=== PATIENT | male | born 1960 | race African-American/Black ===

== ENCOUNTER 2017-04-01 11:09 | Inpatient (IN) | payer OTHER ==
[2017-04-01 11:47] VITALS: BMI 32.5
[2017-04-01] MEDS ORDERED: ACETAMINOPHEN 325 MG TABLET (FP) PO PRN (15:22)
[2017-04-01] MEDS ORDERED: MAG HYDROX/AL HYDROX/SIMETH 30 ML UNIT-DOSE CUP PO PRN (15:22)
[2017-04-01] MEDS ORDERED: hydrOXYzine PAMOATE 50 MG CAPSULE (FP) PO PRN (15:22)
[2017-04-01] MEDS ORDERED: guaiFENesin/D-METHORPHAN HB 10 ML UNIT-DOSE CUPS PO PRN (15:22)
[2017-04-01] MEDS ORDERED: P-EPHED 60MG/TRIPROLIDI 2.5MG TABLET PO PRN (15:22)
[2017-04-01] MEDS ORDERED: NICOTINE POLACRILEX 2 MG GUM BC PRN (15:22)
[2017-04-01] MEDS ORDERED: IBUPROFEN 400 MG TABLET (FP) PO PRN (15:22)
[2017-04-01] MEDS ORDERED: MAGNESIUM HYDROX 2400MG/30ML ORAL SUSPENSION 30 ML CUP PO PRN (15:22)
[2017-04-01] MEDS ORDERED: MAGNESIUM CITRATE 300 ML BOTTLE PO PRN (15:22)
[2017-04-01] MEDS ORDERED: diphenhydrAMINE HCL 50 MG CAPSULE PO PRN (15:22)
[2017-04-01] MEDS ORDERED: LOPERAMIDE HCL 2 MG CAPSULE PO PRN (15:22)
[2017-04-01] MEDS ORDERED: chlordiazePOXIDE HCL 25 MG CAPSULE PO PRN (15:22)
[2017-04-01] MEDS ORDERED: MENTHOL/PHENOL 1 EACH UD MM PRN (15:22)
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
[2017-04-01] MEDS ORDERED: chlordiazePOXIDE HCL 25 MG CAPSULE PO ONE (16:00)
[2017-04-01] MEDS: chlordiazePOXIDE HCL 25 MG CAPSULE PO SCH ×2 (16:49→22:17)
[2017-04-01] MEDS: FERROUS SO4 325 MG TABLET (FP) PO SCH (16:49)
[2017-04-01] MEDS: PANTOPRAZOLE 40 MG TABLET (FP) PO SCH (16:49)
[2017-04-01] MEDS: DOCUSATE SODIUM 100 MG CAPSULE (FP) PO SCH ×2 (16:49→22:17)
[2017-04-01] MEDS: NICOTINE 14 MG/24 HOURS TOPICAL PATCH TD SCH (16:50)
[2017-04-01] MEDS: THIAMINE HCL 100 MG TABLET (FP) PO SCH (22:17)
[2017-04-01 22:19] LABS: URINE APPEARANCE CLEAR; URINE BILIRUBIN NEGATIVE (NEGATIVE); URINE BLOOD NEGATIVE (NEGATIVE); URINE COLOR YELLOW; URINE GLUCOSE (UA) NEGATIVE (NEGATIVE); URINE KETONE TRACE (NEGATIVE); URINE LEUK ESTERASE NEGATIVE (NEGATIVE); URINE NITRITE NEGATIVE (NEGATIVE); URINE PROTEIN NEGATIVE (NEGATIVE); URINE UROBILINOGEN NEGATIVE mg/dL (0.2-1.0)
[2017-04-02] MEDS: DOCUSATE SODIUM 100 MG CAPSULE (FP) PO SCH ×3 (05:36→22:30)
[2017-04-02] MEDS: chlordiazePOXIDE HCL 25 MG CAPSULE PO SCH ×4 (05:36→22:30)
[2017-04-02 09:53] LABS: MCH 24.7 pg (25.7-33.7); MEAN CELL VOLUME 77.2 fl (80-96); MEAN PLT VOLUME 9.4 fl (7.5-11.1); PLATELET COUNT 236 K/MM3 (134-434); RDW 17.1 % (11.9-15.9)
--- NOTE | 2017-04-02 10:07 | PN ---
[facility] CIWA - CIWA Score Nausea/Vomitin-No Nausea/No Vomiting Muscle Tremors: 4-Moderate,w/Arms Extend Anxiety: 4-Mod. Anxious/Guarded Agitation: 4-Moderately Restless Paroxysmal Sweats: 3 Orientation: 0-Oriented Tacttile Disturbances: 0-None Auditory Disturbances: 0-None Visual Disturbances: 0-None Headache: 0-None Present CIWA-Ar Total Score: 15 BHS Progress Note (SOAP) Subjective: sweats body aches interrupted sleep I need to see a sales promoter Objective: 04/02/17 10:03 Vital Signs Temperature 97.6 F 04/02/17 05:57 Pulse Rate 62 04/02/17 05:57 Respiratory Rate 20 04/02/17 05:57 Blood Pressure 133/70 04/02/17 05:57 O2 Sat by Pulse Oximetry (%) Laboratory Tests 04/01/17 04/02/17 21:57 06:00 WBC 3.0 L RBC 4.58 Hgb 11.3 L Hct 35.3 L MCV 77.2 L MCH 24.7 L MCHC 32.0 RDW 17.1 H Plt Count 236 MPV 9.4 Urine Color Yellow Urine Appearance Clear Urine pH 5.0 Ur Specific [place] >= 1.030 H Urine Protein Negative Urine Glucose (UA) Negative Urine Ketones Trace H Urine Blood Negative Urine Nitrite Negative Urine Bilirubin Negative Urine Urobilinogen Negative Ur Leukocyte Esterase Negative labs pending awake/alert ambulating no acute distress Assessment: 04/02/17 10:03 withdrawal sx Plan: continue detox increase fluids dietary customer experience consultant ordered pending labs
[2017-04-02] MEDS: FERROUS SO4 325 MG TABLET (FP) PO SCH (10:30)
[2017-04-02] MEDS: PANTOPRAZOLE 40 MG TABLET (FP) PO SCH (10:30)
[2017-04-02] MEDS: PRENATAL VITAMINS W/ FOLIC ACID TABLET (FP) PO SCH (10:30)
[2017-04-02] MEDS: NICOTINE 14 MG/24 HOURS TOPICAL PATCH TD SCH (10:31)
[2017-04-02] MEDS ORDERED: HYDROCORTISONE 1% TOPICAL CREAM 30 GM TUBE TP PRN (10:45)
--- NOTE | 2017-04-02 10:45 | EKG ---
Test Reason : Blood Pressure : / mmHG Vent. Rate : 079 BPM Atrial Rate : 079 BPM P-R Int : 150 ms QRS Dur : 126 ms QT Int : 412 ms P-R-T Axes : 053 -41 028 degrees QTc Int : 472 ms NORMAL SINUS RHYTHM LEFT AXIS DEVIATION RIGHT BUNDLE BRANCH BLOCK ABNORMAL ECG NO PREVIOUS ECGS AVAILABLE Confirmed by MIKE GIRON MD ([id number]) on 04/02/2017 10:44:53 AM Referred By: David Villatoro Confirmed By:MIKE GIRON MD
[2017-04-02 10:51] LABS: ALBUMIN 3.7 g/dl (3.4-5.0); ANION GAP 10 (8-16); BILIRUBIN,TOTAL 0.3 mg/dL (0.2-1.0); CALCIUM 8.8 mg/dL (8.5-10.1); CO2 26 mmol/L (21-32); GLUCOSE,RANDOM 133 mg/dL (74-106); SGOT/AST 8 U/L (15-37); TOT PROT 6.9 g/dl (6.4-8.2)
[2017-04-02 10:58] LABS: ALK PHOS 66 U/L (45-117); CREATININE 1.4 mg/dL (0.7-1.3); SGPT/ALT 18 U/L (12-78)
[2017-04-02] MEDS ORDERED: COLLOIDAL OATMEAL 1 BAR EACH TP PRN (15:45)
[2017-04-02] MEDS: THIAMINE HCL 100 MG TABLET (FP) PO SCH (22:30)
[2017-04-03] MEDS: DOCUSATE SODIUM 100 MG CAPSULE (FP) PO SCH ×3 (05:48→22:51)
[2017-04-03] MEDS: chlordiazePOXIDE HCL 25 MG CAPSULE PO SCH ×2 (05:50→10:29)
[2017-04-03] MEDS ORDERED: diphenhydrAMINE HCL 50 MG CAPSULE PO ONE (10:00)
[2017-04-03] MEDS: FERROUS SO4 325 MG TABLET (FP) PO SCH (10:28)
[2017-04-03] MEDS: PRENATAL VITAMINS W/ FOLIC ACID TABLET (FP) PO SCH (10:28)
[2017-04-03] MEDS: NICOTINE 14 MG/24 HOURS TOPICAL PATCH TD SCH (10:28)
[2017-04-03] MEDS: PANTOPRAZOLE 40 MG TABLET (FP) PO SCH (10:29)
--- NOTE | 2017-04-03 11:30 | PN ---
S CIWA - CIWA Score Nausea/Vomitin-No Nausea/No Vomiting Muscle Tremors: 4-Moderate,w/Arms Extend Anxiety: 3 Agitation: 4-Moderately Restless Paroxysmal Sweats: 3 Orientation: 0-Oriented Tacttile Disturbances: 0-None Auditory Disturbances: 0-None Visual Disturbances: 0-None Headache: 0-None Present CIWA-Ar Total Score: 14 BHS Progress Note (SOAP) Subjective: shakes sweats interrupted sleep agitation Objective: 04/03/2017 Vital Signs Temperature 98.2 F 04/04/17 10:05 Pulse Rate 86 04/04/17 10:05 Respiratory Rate 18 04/04/17 10:05 Blood Pressure 138/75 04/04/17 10:05 O2 Sat by Pulse Oximetry (%) Laboratory Tests 04/01/17 04/02/17 04/02/17 21:57 06:00 06:00 WBC 3.0 L RBC 4.58 Hgb 11.3 L Hct 35.3 L MCV 77.2 L MCH 24.7 L MCHC 32.0 RDW 17.1 H Plt Count 236 MPV 9.4 Sodium 141 Potassium 4.4 Chloride 105 Carbon Dioxide 26 Anion Gap 10 BUN 15 D Creatinine 1.4 H D Creat Clearance w eGFR 52.62 Random Glucose 133 H Calcium 8.8 Total Bilirubin 0.3 D AST 8 L D ALT 18 D Alkaline Phosphatase 66 Total Protein 6.9 Albumin 3.7 Urine Color Yellow Urine Appearance Clear Urine pH 5.0 Ur Specific [place] >= 1.030 H Urine Protein Negative Urine Glucose (UA) Negative Urine Ketones Trace H Urine Blood Negative Urine Nitrite Negative Urine Bilirubin Negative Urine Urobilinogen Negative Ur Leukocyte Esterase Negative RPR Titer 04/02/17 06:00 WBC RBC Hgb Hct MCV MCH MCHC RDW Plt Count MPV Sodium Potassium Chloride Carbon Dioxide Anion Gap BUN Creatinine Creat Clearance w eGFR Random Glucose Calcium Total Bilirubin AST ALT Alkaline Phosphatase Total Protein Albumin Urine Color Urine Appearance Urine pH Ur Specific [place] Urine Protein Urine Glucose (UA) Urine Ketones Urine Blood Urine Nitrite Urine Bilirubin Urine Urobilinogen Ur Leukocyte Esterase RPR Titer Nonreactive AAOx3 no acute distress ambulating Assessment: 04/03/17 11:49 withdrawal sx Plan: continue detox increase fluids
--- NOTE | 2017-04-03 11:51 | PN ---
BHS Progress Note (SOAP) Subjective: nausea, sweats, interrupted sleep, anxiety, tremors Objective: 04/03/17 11:50 Vital Signs - 24 hr 04/02/17 04/02/17 04/02/17 14:44 17:43 22:01 Temperature 98.1 F 97.9 F 97.7 F Pulse Rate 85 74 88 Respiratory 18 19 16 Rate Blood Pressure 120/69 103/53 120/72 04/03/17 04/03/17 04/03/17 00:30 03:30 06:47 Temperature 96.3 F L Pulse Rate 73 Respiratory 18 18 18 Rate Blood Pressure 102/73 04/03/17 10:13 Temperature 97.7 F Pulse Rate 77 Respiratory 18 Rate Blood Pressure 120/80 Laboratory Tests 04/01/17 04/02/17 04/02/17 21:57 06:00 06:00 WBC 3.0 L RBC 4.58 Hgb 11.3 L Hct 35.3 L MCV 77.2 L MCH 24.7 L MCHC 32.0 RDW 17.1 H Plt Count 236 MPV 9.4 Sodium 141 Potassium 4.4 Chloride 105 Carbon Dioxide 26 Anion Gap 10 BUN 15 D Creatinine 1.4 H D Creat Clearance w eGFR 52.62 Random Glucose 133 H Calcium 8.8 Total Bilirubin 0.3 D AST 8 L D ALT 18 D Alkaline Phosphatase 66 Total Protein 6.9 Albumin 3.7 Urine Color Yellow Urine Appearance Clear Urine pH 5.0 Ur Specific [place] >= 1.030 H Urine Protein Negative Urine Glucose (UA) Negative Urine Ketones Trace H Urine Blood Negative Urine Nitrite Negative Urine Bilirubin Negative Urine Urobilinogen Negative Ur Leukocyte Esterase Negative RPR Titer 04/02/17 06:00 WBC RBC Hgb Hct MCV MCH MCHC RDW Plt Count MPV Sodium Potassium Chloride Carbon Dioxide Anion Gap BUN Creatinine Creat Clearance w eGFR Random Glucose Calcium Total Bilirubin AST ALT Alkaline Phosphatase Total Protein Albumin Urine Color Urine Appearance Urine pH Ur Specific [place] Urine Protein Urine Glucose (UA) Urine Ketones Urine Blood Urine Nitrite Urine Bilirubin Urine Urobilinogen Ur Leukocyte Esterase RPR Titer Nonreactive Assessment: 04/03/17 11:50 withdrawwal sx, dehydration,hyperglycemia Plan: cont detox, fluids, diabetic cdiet
[2017-04-03] MEDS: chlordiazePOXIDE 5 MG CAPSULE PO SCH ×2 (17:44→22:51)
[2017-04-03] MEDS: THIAMINE HCL 100 MG TABLET (FP) PO SCH (22:51)
[2017-04-04] MEDS: DOCUSATE SODIUM 100 MG CAPSULE (FP) PO SCH (05:16)
[2017-04-04] MEDS: chlordiazePOXIDE 5 MG CAPSULE PO SCH (05:17)
--- NOTE | 2017-04-04 08:42 | DS ---
[facility] Detox Discharge Summary Admission Date: 04/01/17 Discharge Date: 04/04/17 - History Present History: Alcohol Dependence, Cocaine Dependence Pertinent Past History: GERD, s/p gastric bypass, eczema, allergic reaction arm - Physical Exam Results Vital Signs: Vital Signs Temperature 96.1 F L 04/04/17 06:51 Pulse Rate 67 04/04/17 06:51 Respiratory Rate 18 04/04/17 06:51 Blood Pressure 135/90 04/04/17 06:51 O2 Sat by Pulse Oximetry (%) Laboratory Tests 04/01/17 04/02/17 04/02/17 21:57 06:00 06:00 WBC 3.0 L RBC 4.58 Hgb 11.3 L Hct 35.3 L MCV 77.2 L MCH 24.7 L MCHC 32.0 RDW 17.1 H Plt Count 236 MPV 9.4 Sodium 141 Potassium 4.4 Chloride 105 Carbon Dioxide 26 Anion Gap 10 BUN 15 D Creatinine 1.4 H D Creat Clearance w eGFR 52.62 Random Glucose 133 H Calcium 8.8 Total Bilirubin 0.3 D AST 8 L D ALT 18 D Alkaline Phosphatase 66 Total Protein 6.9 Albumin 3.7 Urine Color Yellow Urine Appearance Clear Urine pH 5.0 Ur Specific [place] >= 1.030 H Urine Protein Negative Urine Glucose (UA) Negative Urine Ketones Trace H Urine Blood Negative Urine Nitrite Negative Urine Bilirubin Negative Urine Urobilinogen Negative Ur Leukocyte Esterase Negative RPR Titer 04/02/17 06:00 WBC RBC Hgb Hct MCV MCH MCHC RDW Plt Count MPV Sodium Potassium Chloride Carbon Dioxide Anion Gap BUN Creatinine Creat Clearance w eGFR Random Glucose Calcium Total Bilirubin AST ALT Alkaline Phosphatase Total Protein Albumin Urine Color Urine Appearance Urine pH Ur Specific [place] Urine Protein Urine Glucose (UA) Urine Ketones Urine Blood Urine Nitrite Urine Bilirubin Urine Urobilinogen Ur Leukocyte Esterase RPR Titer Nonreactive Pertinent Admission Physical Exam Findings: withdrawal sx, discoid lesion forearm - Treatment Hospital Course: Detox Protocol Followed, Detoxed Safely, Responded well, Discharged Condition Good, Rehab Referral Accepted Patient has Accepted a Rehab Referral to: Yes - Medication Discharge Medications: Ambulatory Orders Ferrous Sulfate [Feosol] 325 mg PO DAILY #30 ud 01/13/15 Docusate Sodium [Colace -] 100 mg PO TID 04/01/17 Omeprazole 20 mg PO DAILY 09/05/17 - Diagnosis (1) CA of prostate Current Visit: No Status: Chronic (2) Cocaine dependence Current Visit: Yes Status: Chronic Qualifiers: Substance use status: uncomplicated Qualified Code(s): F14.20 - Cocaine dependence, uncomplicated (3) GERD (gastroesophageal reflux disease) Current Visit: Yes Status: Chronic (4) Obesity Current Visit: Yes Status: Chronic (5) H/O gastric bypass Current Visit: Yes Status: Inactive (6) Complications of gastric bypass surgery Current Visit: Yes Status: Chronic (7) Nicotine dependence Current Visit: Yes Status: Chronic Qualifiers: Nicotine product type: cigarettes (8) Alcohol dependence with uncomplicated withdrawal Current Visit: Yes Status: Chronic (9) Microcytic anemia Current Visit: Yes Status: Acute (10) Acute kidney failure Current Visit: Yes Status: Acute - AMA Did Patient Leave Against Medical Advice: No
[2017-04-04] MEDS: PRENATAL VITAMINS W/ FOLIC ACID TABLET (FP) PO SCH (09:57)
[2017-04-04] MEDS: PANTOPRAZOLE 40 MG TABLET (FP) PO SCH (09:57)
[2017-04-04] MEDS: FERROUS SO4 325 MG TABLET (FP) PO SCH (09:57)
[2017-04-04 10:06] VITALS: BP 138/75; PULSE 86; TEMP 98.2
[2017-04-04] MEDS ORDERED: HYDROCORTISONE 0.5% TOPICAL CREAM 30 GM TUBE TP ONE (10:15)
[2017-04-04] MEDS ORDERED: chlordiazePOXIDE HCL 10 MG CAPSULE PO SCH (17:00)
== END 2017-04-04 10:35 | disposition home or self-care (01) | DRG 897 ==
LOC: YASAS 11:09 → Y6N 15:29
PROVIDERS: ADMIT Internal Medicine Addiction Medicine; ATTEND Internal Medicine Addiction Medicine
PROC: HZ2ZZZZ Detoxification Services for Substance Abuse Treatment (ICD-10-PCS; principal; 2017-04-01)
DX: F10.230 Alcohol dependence with withdrawal, uncomplicated (principal); F14.20 Cocaine dependence, uncomplicated; N17.9 Acute kidney failure, unspecified; F17.210 Nicotine dependence, cigarettes, uncomplicated; I10 Essential (primary) hypertension; K21.9 Gastro-esophageal reflux disease without esophagitis; Z85.46 Personal history of malignant neoplasm of prostate; E66.9 Obesity, unspecified; Z68.32 Body mass index [BMI] 32.0-32.9, adult; Z98.84 Bariatric surgery status; D50.9 Iron deficiency anemia, unspecified; E86.0 Dehydration; R73.9 Hyperglycemia, unspecified; Z90.79 Acquired absence of other genital organ(s)
CPT/HCPCS: 36415; 71020-TC; 80053; 81003; 85027; 86593; 93005; 93010

== ENCOUNTER 2017-11-21 11:32 | Inpatient (IN) | payer OTHER ==
[2017-11-21 12:28] VITALS: BMI 34.4
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
[2017-11-21] MEDS ORDERED: IBUPROFEN 400 MG TABLET (FP) PO PRN (14:53)
[2017-11-21] MEDS ORDERED: hydrOXYzine PAMOATE 50 MG CAPSULE (FP) PO PRN (14:53)
[2017-11-21] MEDS ORDERED: ACETAMINOPHEN 325 MG TABLET (FP) PO PRN (14:53)
[2017-11-21] MEDS ORDERED: P-EPHED 60MG/TRIPROLIDI 2.5MG TABLET PO PRN (14:53)
[2017-11-21] MEDS ORDERED: MAG HYDROX/AL HYDROX/SIMETH 30 ML UNIT-DOSE CUP PO PRN (14:53)
[2017-11-21] MEDS ORDERED: chlordiazePOXIDE HCL 25 MG CAPSULE PO PRN (14:53)
[2017-11-21] MEDS ORDERED: MENTHOL/PHENOL 1 EACH UD MM PRN (14:53)
[2017-11-21] MEDS ORDERED: guaiFENesin/D-METHORPHAN HB 10 ML UNIT-DOSE CUPS PO PRN (14:53)
[2017-11-21] MEDS ORDERED: LOPERAMIDE HCL 2 MG CAPSULE PO PRN (14:53)
[2017-11-21] MEDS ORDERED: chlordiazePOXIDE HCL 25 MG CAPSULE PO ONE (15:20)
[2017-11-21] MEDS: chlordiazePOXIDE HCL 25 MG CAPSULE PO SCH ×2 (18:27→22:27)
[2017-11-21] MEDS ORDERED: MELATONIN 5 MG TABLETS PO PRN (22:00)
[2017-11-21] MEDS: DOCUSATE SODIUM 100 MG CAPSULE (FP) PO SCH (22:27)
[2017-11-21] MEDS: THIAMINE HCL 100 MG TABLET (FP) PO SCH (22:27)
[2017-11-22] MEDS: chlordiazePOXIDE HCL 25 MG CAPSULE PO SCH ×4 (05:30→22:30)
[2017-11-22] MEDS: DOCUSATE SODIUM 100 MG CAPSULE (FP) PO SCH ×3 (05:31→22:30)
[2017-11-22 10:21] LABS: BASO % 1.3 % (0-2.0); EOS % 3.9 % (0-4.5); HEMATOCRIT 36.3 % (35.4-49); HEMOGLOBIN 11.9 GM/dL (11.7-16.9); LYMPH % 50.7 % (8-40); MCH 25.2 pg (25.7-33.7); MCHC 32.7 g/dl (32.0-35.9); MEAN CELL VOLUME 77.1 fl (80-96); MEAN PLT VOLUME 9.5 fl (7.5-11.1); MONO % 13.1 % (3.8-10.2); PLATELET COUNT 189 K/MM3 (134-434); RBC 4.71 M/mm3 (4.00-5.60); RDW 15.9 % (11.9-15.9); WHITE BLOOD COUNT 3.3 K/mm3 (4.0-10.0)
[2017-11-22 10:30] LABS: CHLORIDE 108 mmol/L (98-107); POTASSIUM 4.5 mmol/L (3.5-5.1); SODIUM 140 mmol/L (136-145)
[2017-11-22] MEDS: PRENATAL VITAMINS W/ FOLIC ACID TABLET (FP) PO SCH (10:32)
[2017-11-22] MEDS: FERROUS SO4 325 MG TABLET (FP) PO SCH (10:32)
[2017-11-22 10:49] LABS: ALBUMIN 3.7 g/dl (3.4-5.0); ALK PHOS 89 U/L (45-117); ANION GAP 3 (8-16); BILIRUBIN,TOTAL 0.3 mg/dL (0.2-1.0); BLOOD UREA NITROGEN 19 mg/dL (7-18); CALCIUM 8.1 mg/dL (8.5-10.1); CO2 29 mmol/L (21-32); CREATININE 1.2 mg/dL (0.7-1.3); GLUCOSE,RANDOM 93 mg/dL (74-106); SGOT/AST 13 U/L (15-37); SGPT/ALT 22 U/L (12-78); TOT PROT 7.5 g/dl (6.4-8.2)
[2017-11-22 10:55] LABS: URINE APPEARANCE TURBID; URINE BILIRUBIN NEGATIVE (<2.0 mg/dL); URINE BLOOD NEGATIVE (NEGATIVE); URINE COLOR AMBER; URINE GLUCOSE (UA) NEGATIVE (NEGATIVE); URINE KETONE NEGATIVE (NEGATIVE); URINE LEUK ESTERASE NEGATIVE (NEGATIVE); URINE NITRITE NEGATIVE (NEGATIVE); URINE PROTEIN NEGATIVE (NEGATIVE)
[2017-11-22] MEDS: SENNOSIDES 8.6MG TABLET (FP) PO SCH ×2 (14:31→22:30)
--- NOTE | 2017-11-22 15:31 | PN ---
S CIWA - CIWA Score Nausea/Vomitin-No Nausea/No Vomiting Muscle Tremors: None Anxiety: 5 Agitation: 4-Moderately Restless Paroxysmal Sweats: 3 Orientation: 0-Oriented Tacttile Disturbances: 3-Moderate Itch/Numb/Burn Auditory Disturbances: 0-None Visual Disturbances: 2-Mild Sensitivity Headache: 0-None Present CIWA-Ar Total Score: 17 BHS Progress Note (SOAP) Subjective: Tremors, Anxious, Sweating, Constipation. Objective: PATIENT A & O X 3, OBSERVED AMBULATING ON UNIT. NO ACUTE DISTRESS. 11/22/17 15:29 Vital Signs Temperature 98.6 F 11/22/17 14:37 Pulse Rate 79 11/22/17 14:37 Respiratory Rate 18 11/22/17 14:37 Blood Pressure 122/81 11/22/17 14:37 O2 Sat by Pulse Oximetry (%) Laboratory Tests 11/21/17 11/21/17 11/22/17 14:00 23:31 07:40 WBC RBC Hgb Hct MCV MCH MCHC RDW Plt Count MPV Neutrophils % Lymphocytes % Monocytes % Eosinophils % Basophils % Sodium 140 Potassium 4.5 Chloride 108 H Carbon Dioxide 29 Anion Gap 3 L BUN 19 H D Creatinine 1.2 Creat Clearance w eGFR > 60 Random Glucose 93 D Calcium 8.1 L Total Bilirubin 0.3 AST 13 L D ALT 22 D Alkaline Phosphatase 89 D Total Protein 7.5 Albumin 3.7 Urine Color Katina Urine Appearance Turbid Urine pH 5.0 Ur Specific [place] 1.029 Urine Protein Negative Urine Glucose (UA) Negative Urine Ketones Negative Urine Blood Negative Urine Nitrite Negative Urine Bilirubin Negative Urine Urobilinogen 2.0 Ur Leukocyte Esterase Negative RPR Titer HIV 1&2 Antibody Screen Negative HIV P24 Antigen Negative 11/22/17 11/22/17 07:40 08:30 WBC 3.3 L RBC 4.71 Hgb 11.9 Hct 36.3 MCV 77.1 L MCH 25.2 L MCHC 32.7 RDW 15.9 Plt Count 189 MPV 9.5 Neutrophils % 31.0 L Lymphocytes % 50.7 H Monocytes % 13.1 H Eosinophils % 3.9 Basophils % 1.3 Sodium Potassium Chloride Carbon Dioxide Anion Gap BUN Creatinine Creat Clearance w eGFR Random Glucose Calcium Total Bilirubin AST ALT Alkaline Phosphatase Total Protein Albumin Urine Color Urine Appearance Urine pH Ur Specific [place] Urine Protein Urine Glucose (UA) Urine Ketones Urine Blood Urine Nitrite Urine Bilirubin Urine Urobilinogen Ur Leukocyte Esterase RPR Titer Nonreactive HIV 1&2 Antibody Screen HIV P24 Antigen LABS NOTED. Assessment: 11/22/17 15:29 WITHDRAWAL SYMPTOMS. Plan: CONTINUE DETOX. INCREASE DAILY PO FLUID INTAKE. SENNA PO BID FOR CONSTIPATION (COLACE ALREADY ORDERED).
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
[2017-11-22] MEDS: MAGNESIUM CITRATE 300 ML BOTTLE PO PRN (19:21)
[2017-11-22] MEDS: CLOTRIMAZOLE 1% CREAM 15 GM TUBE TP SCH ×2 (22:29→22:30)
[2017-11-22] MEDS: THIAMINE HCL 100 MG TABLET (FP) PO SCH (22:30)
[2017-11-22] MEDS: MAGNESIUM HYDROX 2400MG/30ML ORAL SUSPENSION 30 ML CUP PO PRN (22:32)
[2017-11-23] MEDS: chlordiazePOXIDE HCL 25 MG CAPSULE PO SCH ×2 (05:56→10:46)
[2017-11-23] MEDS: DOCUSATE SODIUM 100 MG CAPSULE (FP) PO SCH ×3 (05:57→22:38)
[2017-11-23] MEDS ORDERED: diphenhydrAMINE HCL 25 MG CAPSULE (FP) PO ONE (10:06)
[2017-11-23] MEDS: FERROUS SO4 325 MG TABLET (FP) PO SCH (10:46)
[2017-11-23] MEDS: SENNOSIDES 8.6MG TABLET (FP) PO SCH ×2 (10:46→22:38)
[2017-11-23] MEDS: PRENATAL VITAMINS W/ FOLIC ACID TABLET (FP) PO SCH (10:46)
[2017-11-23] MEDS: CLOTRIMAZOLE 1% CREAM 15 GM TUBE TP SCH ×2 (10:47→22:38)
[2017-11-23] MEDS: chlordiazePOXIDE 5 MG CAPSULE PO SCH ×2 (17:35→22:37)
[2017-11-23] MEDS: MAGNESIUM HYDROX 2400MG/30ML ORAL SUSPENSION 30 ML CUP PO PRN (18:01)
--- NOTE | 2017-11-23 20:16 | PN ---
[facility] CIWA - CIWA Score Nausea/Vomitin-No Nausea/No Vomiting Muscle Tremors: 3 Anxiety: 4-Mod. Anxious/Guarded Agitation: 4-Moderately Restless Paroxysmal Sweats: 3 Orientation: 0-Oriented Tacttile Disturbances: 0-None Auditory Disturbances: 1-Very Mild Visual Disturbances: 0-None Headache: 0-None Present CIWA-Ar Total Score: 15 BHS Progress Note (SOAP) Subjective: Tremors, Anxious, Sweating, Constipation (patient denies abdominal discomfort). Patient reports history of constipation and gastric bypass and intestinal surgery. Objective: PATIENT A & O X 3, OBSERVED AMBULATING ON UNIT. NO ACUTE DISTRESS. 11/23/17 20:17 Vital Signs Temperature 97.0 F L 11/23/17 17:55 Pulse Rate 80 11/23/17 17:55 Respiratory Rate 20 11/23/17 17:55 Blood Pressure 120/86 11/23/17 17:55 O2 Sat by Pulse Oximetry (%) Laboratory Tests 11/21/17 11/21/17 11/22/17 14:00 23:31 07:40 WBC RBC Hgb Hct MCV MCH MCHC RDW Plt Count MPV Neutrophils % Lymphocytes % Monocytes % Eosinophils % Basophils % Sodium 140 Potassium 4.5 Chloride 108 H Carbon Dioxide 29 Anion Gap 3 L BUN 19 H D Creatinine 1.2 Creat Clearance w eGFR > 60 Random Glucose 93 D Calcium 8.1 L Total Bilirubin 0.3 AST 13 L D ALT 22 D Alkaline Phosphatase 89 D Total Protein 7.5 Albumin 3.7 Urine Color Katina Urine Appearance Turbid Urine pH 5.0 Ur Specific [place] 1.029 Urine Protein Negative Urine Glucose (UA) Negative Urine Ketones Negative Urine Blood Negative Urine Nitrite Negative Urine Bilirubin Negative Urine Urobilinogen 2.0 Ur Leukocyte Esterase Negative RPR Titer HIV 1&2 Antibody Screen Negative HIV P24 Antigen Negative 11/22/17 11/22/17 07:40 08:30 WBC 3.3 L RBC 4.71 Hgb 11.9 Hct 36.3 MCV 77.1 L MCH 25.2 L MCHC 32.7 RDW 15.9 Plt Count 189 MPV 9.5 Neutrophils % 31.0 L Lymphocytes % 50.7 H Monocytes % 13.1 H Eosinophils % 3.9 Basophils % 1.3 Sodium Potassium Chloride Carbon Dioxide Anion Gap BUN Creatinine Creat Clearance w eGFR Random Glucose Calcium Total Bilirubin AST ALT Alkaline Phosphatase Total Protein Albumin Urine Color Urine Appearance Urine pH Ur Specific [place] Urine Protein Urine Glucose (UA) Urine Ketones Urine Blood Urine Nitrite Urine Bilirubin Urine Urobilinogen Ur Leukocyte Esterase RPR Titer Nonreactive HIV 1&2 Antibody Screen HIV P24 Antigen LABS NOTED. Assessment: 11/23/17 20:19 WITHDRAWAL SYMPTOMS. Plan: CONTINUE DETOX. INCREASE DAILY PO FLUID INTAKE. CONTINUE COLACE, SENNA FOR CONSTIPATION.
[2017-11-23] MEDS: THIAMINE HCL 100 MG TABLET (FP) PO SCH (22:38)
[2017-11-24] MEDS: chlordiazePOXIDE 5 MG CAPSULE PO SCH ×2 (05:51→10:44)
[2017-11-24] MEDS: DOCUSATE SODIUM 100 MG CAPSULE (FP) PO SCH ×3 (05:51→22:36)
[2017-11-24] MEDS: MAGNESIUM CITRATE 300 ML BOTTLE PO PRN (05:54)
[2017-11-24] MEDS: SENNOSIDES 8.6MG TABLET (FP) PO SCH ×2 (10:44→22:36)
[2017-11-24] MEDS: FERROUS SO4 325 MG TABLET (FP) PO SCH (10:44)
[2017-11-24] MEDS: CLOTRIMAZOLE 1% CREAM 15 GM TUBE TP SCH ×2 (10:44→22:35)
[2017-11-24] MEDS: PRENATAL VITAMINS W/ FOLIC ACID TABLET (FP) PO SCH (10:45)
--- NOTE | 2017-11-24 11:53 | PN ---
BHS Progress Note (SOAP) Subjective: sleep disturbance sweats Objective: 11/24/17 11:52 A & O x 3 Vital Signs Temperature 98.1 F 11/24/17 09:16 Pulse Rate 80 11/24/17 09:16 Respiratory Rate 18 11/24/17 09:16 Blood Pressure 130/89 11/24/17 09:16 O2 Sat by Pulse Oximetry (%) Assessment: 11/24/17 11:52 withdrawal sx Plan: continue detox
--- NOTE | 2017-11-24 12:30 | EKG ---
Test Reason : Blood Pressure : / mmHG Vent. Rate : 073 BPM Atrial Rate : 073 BPM P-R Int : 160 ms QRS Dur : 128 ms QT Int : 430 ms P-R-T Axes : 063 -34 021 degrees QTc Int : 473 ms NORMAL SINUS RHYTHM LEFT AXIS DEVIATION RIGHT BUNDLE BRANCH BLOCK ABNORMAL ECG WHEN COMPARED WITH ECG OF 01-APR-2017 15:54, NO SIGNIFICANT CHANGE WAS FOUND Confirmed by DELMY BAIG MD ([id number]) on 11/24/2017 12:30:04 PM Referred By: Confirmed By:DELMY BAIG MD
[2017-11-24] MEDS: chlordiazePOXIDE HCL 10 MG CAPSULE PO SCH ×2 (17:55→22:36)
[2017-11-24] MEDS: MAGNESIUM HYDROX 2400MG/30ML ORAL SUSPENSION 30 ML CUP PO PRN (17:57)
[2017-11-24] MEDS ORDERED: LACTULOSE 20 GM/30 ML UDC (FOR ORAL USE ONLY) PO PRN (18:01)
--- NOTE | 2017-11-24 18:04 | PN ---
S Progress Note Note: Patient with constipation and no relief with milk of magnesia. Vital Signs Temperature 96.7 F L 11/24/17 18:00 Pulse Rate 80 11/24/17 18:00 Respiratory Rate 18 11/24/17 18:00 Blood Pressure 129/88 11/24/17 18:00 O2 Sat by Pulse Oximetry (%) - constipation Plan: Lactulose QD Increase fluids Continue to monitor
[2017-11-24] MEDS: THIAMINE HCL 100 MG TABLET (FP) PO SCH (22:35)
[2017-11-25] MEDS: chlordiazePOXIDE HCL 10 MG CAPSULE PO SCH ×2 (05:30→10:38)
[2017-11-25] MEDS: DOCUSATE SODIUM 100 MG CAPSULE (FP) PO SCH ×3 (05:31→22:18)
[2017-11-25] MEDS: CLOTRIMAZOLE 1% CREAM 15 GM TUBE TP SCH ×2 (10:37→22:19)
[2017-11-25] MEDS: SENNOSIDES 8.6MG TABLET (FP) PO SCH ×2 (10:38→22:18)
[2017-11-25] MEDS: FERROUS SO4 325 MG TABLET (FP) PO SCH (10:38)
[2017-11-25] MEDS: PRENATAL VITAMINS W/ FOLIC ACID TABLET (FP) PO SCH (10:38)
--- NOTE | 2017-11-25 13:02 | PN ---
BHS Progress Note (SOAP) Subjective: Anxious, Sweating, Constipation (patient reports that he did have a bowel movement this AM). Objective: PATIENT A & O X 3, OBSERVED AMBULATING ON UNIT. NO ACUTE DISTRESS. 11/25/17 12:59 Vital Signs Temperature 97.1 F L 11/25/17 09:32 Pulse Rate 88 11/25/17 09:32 Respiratory Rate 20 11/25/17 09:32 Blood Pressure 134/76 11/25/17 09:32 O2 Sat by Pulse Oximetry (%) Laboratory Tests 11/21/17 11/21/17 11/22/17 14:00 23:31 07:40 WBC RBC Hgb Hct MCV MCH MCHC RDW Plt Count MPV Neutrophils % Lymphocytes % Monocytes % Eosinophils % Basophils % Sodium 140 Potassium 4.5 Chloride 108 H Carbon Dioxide 29 Anion Gap 3 L BUN 19 H D Creatinine 1.2 Creat Clearance w eGFR > 60 Random Glucose 93 D Calcium 8.1 L Total Bilirubin 0.3 AST 13 L D ALT 22 D Alkaline Phosphatase 89 D Total Protein 7.5 Albumin 3.7 Urine Color Katina Urine Appearance Turbid Urine pH 5.0 Ur Specific [place] 1.029 Urine Protein Negative Urine Glucose (UA) Negative Urine Ketones Negative Urine Blood Negative Urine Nitrite Negative Urine Bilirubin Negative Urine Urobilinogen 2.0 Ur Leukocyte Esterase Negative RPR Titer HIV 1&2 Antibody Screen Negative HIV P24 Antigen Negative 11/22/17 11/22/17 07:40 08:30 WBC 3.3 L RBC 4.71 Hgb 11.9 Hct 36.3 MCV 77.1 L MCH 25.2 L MCHC 32.7 RDW 15.9 Plt Count 189 MPV 9.5 Neutrophils % 31.0 L Lymphocytes % 50.7 H Monocytes % 13.1 H Eosinophils % 3.9 Basophils % 1.3 Sodium Potassium Chloride Carbon Dioxide Anion Gap BUN Creatinine Creat Clearance w eGFR Random Glucose Calcium Total Bilirubin AST ALT Alkaline Phosphatase Total Protein Albumin Urine Color Urine Appearance Urine pH Ur Specific [place] Urine Protein Urine Glucose (UA) Urine Ketones Urine Blood Urine Nitrite Urine Bilirubin Urine Urobilinogen Ur Leukocyte Esterase RPR Titer Nonreactive HIV 1&2 Antibody Screen HIV P24 Antigen LABS NOTED. Assessment: 11/25/17 12:59 WITHDRAWAL SYMPTOMS. Plan: CONTINUE DETOX. INCREASE DAILY PO FLUID INTAKE. CONTINUE DAILY COLACE, SENNA. PATIENT SCHEDULED FOR D/C TOMORROW.
[2017-11-25] MEDS: MAGNESIUM HYDROX 2400MG/30ML ORAL SUSPENSION 30 ML CUP PO PRN (14:13)
[2017-11-25] MEDS: THIAMINE HCL 100 MG TABLET (FP) PO SCH (22:18)
[2017-11-26] MEDS: DOCUSATE SODIUM 100 MG CAPSULE (FP) PO SCH (05:39)
[2017-11-26 06:20] VITALS: BP 112/71; PULSE 66; TEMP 97.2
--- NOTE | 2017-11-26 13:00 | PN ---
BHS Progress Note (SOAP) Subjective: Patient denies current Detox symptoms and reports that he feels well overall. Objective: PATIENT A & O X 3, OBSERVED AMBULATING ON UNIT. NO ACUTE DISTRESS. 11/26/17 12:57 Vital Signs Temperature 97.2 F L 11/26/17 06:20 Pulse Rate 66 11/26/17 06:20 Respiratory Rate 18 11/26/17 06:20 Blood Pressure 112/71 11/26/17 06:20 O2 Sat by Pulse Oximetry (%) Laboratory Tests 11/21/17 11/21/17 11/22/17 14:00 23:31 07:40 WBC RBC Hgb Hct MCV MCH MCHC RDW Plt Count MPV Neutrophils % Lymphocytes % Monocytes % Eosinophils % Basophils % Sodium 140 Potassium 4.5 Chloride 108 H Carbon Dioxide 29 Anion Gap 3 L BUN 19 H D Creatinine 1.2 Creat Clearance w eGFR > 60 Random Glucose 93 D Calcium 8.1 L Total Bilirubin 0.3 AST 13 L D ALT 22 D Alkaline Phosphatase 89 D Total Protein 7.5 Albumin 3.7 Urine Color Katina Urine Appearance Turbid Urine pH 5.0 Ur Specific [place] 1.029 Urine Protein Negative Urine Glucose (UA) Negative Urine Ketones Negative Urine Blood Negative Urine Nitrite Negative Urine Bilirubin Negative Urine Urobilinogen 2.0 Ur Leukocyte Esterase Negative RPR Titer HIV 1&2 Antibody Screen Negative HIV P24 Antigen Negative 11/22/17 11/22/17 07:40 08:30 WBC 3.3 L RBC 4.71 Hgb 11.9 Hct 36.3 MCV 77.1 L MCH 25.2 L MCHC 32.7 RDW 15.9 Plt Count 189 MPV 9.5 Neutrophils % 31.0 L Lymphocytes % 50.7 H Monocytes % 13.1 H Eosinophils % 3.9 Basophils % 1.3 Sodium Potassium Chloride Carbon Dioxide Anion Gap BUN Creatinine Creat Clearance w eGFR Random Glucose Calcium Total Bilirubin AST ALT Alkaline Phosphatase Total Protein Albumin Urine Color Urine Appearance Urine pH Ur Specific [place] Urine Protein Urine Glucose (UA) Urine Ketones Urine Blood Urine Nitrite Urine Bilirubin Urine Urobilinogen Ur Leukocyte Esterase RPR Titer Nonreactive HIV 1&2 Antibody Screen HIV P24 Antigen LABS NOTED. Assessment: 11/26/17 12:58 COMPLETION OF DETOX REGIMEN. Plan: PATIENT SCHEDULED FOR DISCHARGE FROM DETOX UNIT TODAY.
--- NOTE | 2017-11-26 13:06 | DS ---
[facility] Detox Discharge Summary Admission Date: 11/21/17 Discharge Date: 11/26/17 - History Present History: Alcohol Dependence, Cocaine Dependence Additional Comments: PATIENT GOING TO LOCAL OUTPATIENT SUPPORT GROUP PROGRAM (PATIENT UNABLE TO RECALL NAME AT THIS TIME) FOR AFTERCARE. PATIENT WAS DISCHARGED FROM DETOX UNIT IN STABLE MEDICAL CONDITION. Pertinent Past History: History of Gastric Bypass, History of Anemia due to Gastric Bypass, GERD, Constipation, Tinea Versicolor, History of Prostate Cancer HTN, Nicotine Dependence. - Physical Exam Results Vital Signs: Vital Signs Temperature 97.2 F L 11/26/17 06:20 Pulse Rate 66 11/26/17 06:20 Respiratory Rate 18 11/26/17 06:20 Blood Pressure 112/71 11/26/17 06:20 O2 Sat by Pulse Oximetry (%) Pertinent Admission Physical Exam Findings: WITHDRAWAL SYMPTOMS. Laboratory Tests 11/21/17 11/21/17 11/22/17 14:00 23:31 07:40 WBC RBC Hgb Hct MCV MCH MCHC RDW Plt Count MPV Neutrophils % Lymphocytes % Monocytes % Eosinophils % Basophils % Sodium 140 Potassium 4.5 Chloride 108 H Carbon Dioxide 29 Anion Gap 3 L BUN 19 H D Creatinine 1.2 Creat Clearance w eGFR > 60 Random Glucose 93 D Calcium 8.1 L Total Bilirubin 0.3 AST 13 L D ALT 22 D Alkaline Phosphatase 89 D Total Protein 7.5 Albumin 3.7 Urine Color Katina Urine Appearance Turbid Urine pH 5.0 Ur Specific [place] 1.029 Urine Protein Negative Urine Glucose (UA) Negative Urine Ketones Negative Urine Blood Negative Urine Nitrite Negative Urine Bilirubin Negative Urine Urobilinogen 2.0 Ur Leukocyte Esterase Negative RPR Titer HIV 1&2 Antibody Screen Negative HIV P24 Antigen Negative 11/22/17 11/22/17 07:40 08:30 WBC 3.3 L RBC 4.71 Hgb 11.9 Hct 36.3 MCV 77.1 L MCH 25.2 L MCHC 32.7 RDW 15.9 Plt Count 189 MPV 9.5 Neutrophils % 31.0 L Lymphocytes % 50.7 H Monocytes % 13.1 H Eosinophils % 3.9 Basophils % 1.3 Sodium Potassium Chloride Carbon Dioxide Anion Gap BUN Creatinine Creat Clearance w eGFR Random Glucose Calcium Total Bilirubin AST ALT Alkaline Phosphatase Total Protein Albumin Urine Color Urine Appearance Urine pH Ur Specific [place] Urine Protein Urine Glucose (UA) Urine Ketones Urine Blood Urine Nitrite Urine Bilirubin Urine Urobilinogen Ur Leukocyte Esterase RPR Titer Nonreactive HIV 1&2 Antibody Screen HIV P24 Antigen LABS NOTED. - Treatment Hospital Course: Detox Protocol Followed, Detoxed Safely, Responded well, Discharged Condition Good Patient has Accepted a Rehab Referral to: PATIENT GOING TO LOCAL OUTPATIENT SUPPORT GROUP PROGRAM FOR AFTERCARE. - Medication Discharge Medications: Ambulatory Orders Ferrous Sulfate [Feosol] 325 mg PO DAILY #30 ud 01/13/15 Docusate Sodium [Colace -] 100 mg PO TID 04/01/17 Omeprazole 20 mg PO DAILY 04/01/17 - Diagnosis (1) History of gastric bypass Status: Chronic (2) Tinea versicolor Status: Acute (3) Alcohol dependence with uncomplicated withdrawal Status: Acute (4) CA of prostate Status: Chronic (5) Cocaine dependence Status: Acute Qualifiers: Substance use status: uncomplicated Qualified Code(s): F14.20 - Cocaine dependence, uncomplicated (6) GERD (gastroesophageal reflux disease) Status: Chronic Qualifiers: Esophagitis presence: esophagitis presence not specified Qualified Code(s) : K21.9 - Gastro-esophageal reflux disease without esophagitis (7) Nicotine dependence Status: Acute Qualifiers: Nicotine product type: cigarettes Substance use status: uncomplicated Qualified Code(s): F17.210 - Nicotine dependence, cigarettes, uncomplicated (8) Hypertension Status: Chronic Qualifiers: Hypertension type: unspecified Qualified Code(s): I10 - Essential (primary ) hypertension - AMA Did Patient Leave Against Medical Advice: No
== END 2017-11-26 08:25 | disposition home or self-care (01) | DRG 897 ==
LOC: YASAS 11:32 → Y3N 14:47
PROVIDERS: ADMIT Internal Medicine; ATTEND Internal Medicine
PROC: HZ2ZZZZ Detoxification Services for Substance Abuse Treatment (ICD-10-PCS; principal; 2017-11-21)
DX: F10.230 Alcohol dependence with withdrawal, uncomplicated (principal); F14.20 Cocaine dependence, uncomplicated; F17.210 Nicotine dependence, cigarettes, uncomplicated; I10 Essential (primary) hypertension; B36.0 Pityriasis versicolor; Z85.46 Personal history of malignant neoplasm of prostate; K21.9 Gastro-esophageal reflux disease without esophagitis; K59.00 Constipation, unspecified; E66.9 Obesity, unspecified; Z68.34 Body mass index [BMI] 34.0-34.9, adult; Z98.84 Bariatric surgery status; Z90.79 Acquired absence of other genital organ(s); Z91.013 Allergy to seafood
CPT/HCPCS: 36415; 80053; 81003; 85025; 86593; 87389; 93005; 93010

== ENCOUNTER 2018-05-11 10:17 | Inpatient (IN) | payer OTHER ==
[2018-05-11 10:49] VITALS: BMI 32.5
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
[2018-05-11] MEDS ORDERED: guaiFENesin/D-METHORPHAN HB 10 ML UNIT-DOSE CUPS PO PRN (13:51)
[2018-05-11] MEDS ORDERED: LOPERAMIDE HCL 2 MG CAPSULE PO PRN (13:51)
[2018-05-11] MEDS ORDERED: hydrOXYzine PAMOATE 50 MG CAPSULE (FP) PO PRN (13:51)
[2018-05-11] MEDS ORDERED: MAG HYDROX/AL HYDROX/SIMETH 30 ML UNIT-DOSE CUP PO PRN (13:51)
[2018-05-11] MEDS ORDERED: IBUPROFEN 400 MG TABLET (FP) PO PRN (13:51)
[2018-05-11] MEDS ORDERED: diazePAM 5 MG TABLET PO PRN (13:51)
[2018-05-11] MEDS ORDERED: ACETAMINOPHEN 325 MG TABLET (FP) PO PRN (13:51)
[2018-05-11] MEDS ORDERED: MENTHOL/PHENOL 1 EACH UD MM PRN (13:51)
[2018-05-11] MEDS ORDERED: P-EPHED 60MG/TRIPROLIDI 2.5MG TABLET PO PRN (13:51)
[2018-05-11] MEDS ORDERED: diazePAM 5 MG TABLET PO ONE (14:00)
[2018-05-11] MEDS: DOCUSATE SODIUM 100 MG CAPSULE (FP) PO SCH ×2 (14:37→22:30)
[2018-05-11] MEDS: PSYLLIUM 5.85 GM PACKET PO SCH ×2 (14:41→22:31)
[2018-05-11] MEDS ORDERED: MELATONIN 5 MG TABLETS PO PRN (22:00)
[2018-05-11 22:20] LABS: URINE APPEARANCE TURBID; URINE BILIRUBIN NEGATIVE (<2.0 mg/dL); URINE COLOR YELLOW; URINE GLUCOSE (UA) NEGATIVE (NEGATIVE); URINE KETONE NEGATIVE (NEGATIVE); URINE LEUK ESTERASE NEGATIVE (NEGATIVE); URINE NITRITE NEGATIVE (NEGATIVE); URINE PROTEIN NEGATIVE (NEGATIVE)
[2018-05-11] MEDS: diazePAM 5 MG TABLET PO SCH (22:30)
[2018-05-11] MEDS: THIAMINE HCL 100 MG TABLET (FP) PO SCH (22:30)
[2018-05-12] MEDS: diazePAM 5 MG TABLET PO SCH ×3 (05:10→22:10)
[2018-05-12] MEDS: DOCUSATE SODIUM 100 MG CAPSULE (FP) PO SCH ×3 (05:10→22:10)
[2018-05-12] MEDS: PSYLLIUM 5.85 GM PACKET PO SCH ×3 (05:11→22:10)
[2018-05-12] MEDS: FERROUS SO4 325 MG TABLET (FP) PO SCH (10:01)
[2018-05-12] MEDS: PRENATAL VITAMINS W/ FOLIC ACID TABLET (FP) PO SCH (10:01)
[2018-05-12 10:11] LABS: HEMATOCRIT 35.5 % (35.4-49); HEMOGLOBIN 11.2 GM/dL (11.7-16.9); MCH 24.4 pg (25.7-33.7); MCHC 31.5 g/dl (32.0-35.9); MEAN CELL VOLUME 77.3 fl (80-96); MEAN PLT VOLUME 8.8 fl (7.5-11.1); PLATELET COUNT 340 K/MM3 (134-434); RBC 4.59 M/mm3 (4.00-5.60); RDW 17.7 % (11.9-15.9); WHITE BLOOD COUNT 5.4 K/mm3 (4.0-10.0)
[2018-05-12 10:27] LABS: ALBUMIN 3.3 g/dl (3.4-5.0); ALK PHOS 86 U/L (45-117); ANION GAP 9 MMOL/L (8-16); BILIRUBIN,TOTAL 0.2 mg/dL (0.2-1); BLOOD UREA NITROGEN 21 mg/dL (7-18); CALCIUM 8.6 mg/dL (8.5-10.1); CHLORIDE 108 mmol/L (98-107); CO2 25 mmol/L (21-32); CREATININE 1.3 mg/dL (0.55-1.3); GLUCOSE,RANDOM 108 mg/dL (74-106); POTASSIUM 4.7 mmol/L (3.5-5.1); SGOT/AST 7 U/L (15-37); SGPT/ALT 17 U/L (13-61); SODIUM 142 mmol/L (136-145); TOT PROT 7.4 g/dl (6.4-8.2)
[2018-05-12] MEDS ORDERED: FLU VACCINE QUAD 60 MCG/0.5 ML (MDV 18-19) IM ONE (12:00)
--- NOTE | 2018-05-12 12:02 | PN ---
[facility] CIWA - CIWA Score Nausea/Vomitin-Mild Nausea/No Vomiting Muscle Tremors: 4-Moderate,w/Arms Extend Anxiety: 4-Mod. Anxious/Guarded Agitation: 4-Moderately Restless Paroxysmal Sweats: 3 Orientation: 0-Oriented Tacttile Disturbances: 1-Very Mild Itch/Numbness Auditory Disturbances: 0-None Visual Disturbances: 0-None Headache: 0-None Present CIWA-Ar Total Score: 17 BHS Progress Note (SOAP) Subjective: Agitated, constipation, sweating, interrupted sleep Objective: 05/12/18 11:57 Last Vital Signs Temp Pulse Resp BP Pulse Ox 97.1 F L 68 18 135/90 05/12/18 10:02 05/12/18 10:02 05/12/18 10:02 05/12/18 10:02 Laboratory Tests 05/11/18 05/11/18 05/12/18 13:00 15:15 06:00 WBC 5.4 RBC 4.59 Hgb 11.2 L Hct 35.5 MCV 77.3 L MCH 24.4 L MCHC 31.5 L RDW 17.7 H Plt Count 340 D MPV 8.8 Sodium Potassium Chloride Carbon Dioxide Anion Gap BUN Creatinine Creat Clearance w eGFR Random Glucose Calcium Total Bilirubin AST ALT Alkaline Phosphatase Total Protein Albumin Urine Color Yellow Urine Appearance Turbid Urine pH 5.0 Ur Specific [place] 1.030 Urine Protein Negative Urine Glucose (UA) Negative Urine Ketones Negative Urine Blood Negative Urine Nitrite Negative Urine Bilirubin Negative Urine Urobilinogen 2.0 Ur Leukocyte Esterase Negative RPR Titer HIV 1&2 Antibody Screen Negative HIV P24 Antigen Negative 05/12/18 05/12/18 06:00 06:00 WBC RBC Hgb Hct MCV MCH MCHC RDW Plt Count MPV Sodium 142 Potassium 4.7 Chloride 108 H Carbon Dioxide 25 Anion Gap 9 BUN 21 H Creatinine 1.3 Creat Clearance w eGFR 57.10 Random Glucose 108 H Calcium 8.6 Total Bilirubin 0.2 AST 7 L ALT 17 Alkaline Phosphatase 86 Total Protein 7.4 Albumin 3.3 L Urine Color Urine Appearance Urine pH Ur Specific [place] Urine Protein Urine Glucose (UA) Urine Ketones Urine Blood Urine Nitrite Urine Bilirubin Urine Urobilinogen Ur Leukocyte Esterase RPR Titer Nonreactive HIV 1&2 Antibody Screen HIV P24 Antigen Labs reviewed: serum creatinine 1.3, GFR 57.10, bun 21 Assessment: 05/12/18 12:02 Withdrawal symptoms Noted with prerenal azotemia Plan: Continue detox Prerenal azotemia: encouraged PO water intake
[2018-05-12] MEDS: VITAMINS A AND D TOPICAL OINTMENT 60 GM TUBE TP SCH ×3 (14:00→23:21)
[2018-05-12] MEDS: MAGNESIUM CITRATE 300 ML BOTTLE PO PRN (17:17)
[2018-05-12] MEDS: THIAMINE HCL 100 MG TABLET (FP) PO SCH (22:10)
[2018-05-13] MEDS: DOCUSATE SODIUM 100 MG CAPSULE (FP) PO SCH ×3 (05:31→22:17)
[2018-05-13] MEDS: VITAMINS A AND D TOPICAL OINTMENT 60 GM TUBE TP SCH ×3 (06:12→17:27)
[2018-05-13] MEDS: PSYLLIUM 5.85 GM PACKET PO SCH ×3 (06:12→22:18)
[2018-05-13] MEDS: PRENATAL VITAMINS W/ FOLIC ACID TABLET (FP) PO SCH (10:04)
[2018-05-13] MEDS: FERROUS SO4 325 MG TABLET (FP) PO SCH (10:04)
[2018-05-13] MEDS: diazePAM 5 MG TABLET PO SCH ×2 (10:05→22:17)
[2018-05-13] MEDS: CLOTRIMAZOLE 1% CREAM 15 GM TUBE TP SCH ×2 (10:23→22:17)
--- NOTE | 2018-05-13 10:36 | PN ---
S CIWA - CIWA Score Nausea/Vomitin Muscle Tremors: 3 Anxiety: 3 Agitation: 3 Paroxysmal Sweats: 3 Orientation: 0-Oriented Tacttile Disturbances: 0-None Auditory Disturbances: 0-None Visual Disturbances: 0-None Headache: 1-Very Mild CIWA-Ar Total Score: 15 BHS Progress Note (SOAP) Subjective: Chronic constipation, interrupted sleep, sweating, anxious Objective: 05/13/18 10:31 Last Vital Signs Temp Pulse Resp BP Pulse Ox 97.4 F L 68 18 116/77 05/13/18 06:26 05/13/18 06:26 05/13/18 06:30 05/13/18 06:26 Laboratory Tests 05/11/18 05/11/18 05/12/18 13:00 15:15 06:00 WBC 5.4 RBC 4.59 Hgb 11.2 L Hct 35.5 MCV 77.3 L MCH 24.4 L MCHC 31.5 L RDW 17.7 H Plt Count 340 D MPV 8.8 Sodium Potassium Chloride Carbon Dioxide Anion Gap BUN Creatinine Creat Clearance w eGFR Random Glucose Calcium Total Bilirubin AST ALT Alkaline Phosphatase Total Protein Albumin Urine Color Yellow Urine Appearance Turbid Urine pH 5.0 Ur Specific [place] 1.030 Urine Protein Negative Urine Glucose (UA) Negative Urine Ketones Negative Urine Blood Negative Urine Nitrite Negative Urine Bilirubin Negative Urine Urobilinogen 2.0 Ur Leukocyte Esterase Negative RPR Titer HIV 1&2 Antibody Screen Negative HIV P24 Antigen Negative 05/12/18 05/12/18 06:00 06:00 WBC RBC Hgb Hct MCV MCH MCHC RDW Plt Count MPV Sodium 142 Potassium 4.7 Chloride 108 H Carbon Dioxide 25 Anion Gap 9 BUN 21 H Creatinine 1.3 Creat Clearance w eGFR 57.10 Random Glucose 108 H Calcium 8.6 Total Bilirubin 0.2 AST 7 L ALT 17 Alkaline Phosphatase 86 Total Protein 7.4 Albumin 3.3 L Urine Color Urine Appearance Urine pH Ur Specific [place] Urine Protein Urine Glucose (UA) Urine Ketones Urine Blood Urine Nitrite Urine Bilirubin Urine Urobilinogen Ur Leukocyte Esterase RPR Titer Nonreactive HIV 1&2 Antibody Screen HIV P24 Antigen Labs reviewed: pre renal azotemia Assessment: 05/13/18 10:31 Withdrawal symptoms Noted with prerenal azotemia Plan: Continue detox Prerenal azotemia: encouraged PO water intake
[2018-05-13] MEDS: MAGNESIUM HYDROX 2400MG/30ML ORAL SUSPENSION 30 ML CUP PO PRN (16:40)
[2018-05-13] MEDS: THIAMINE HCL 100 MG TABLET (FP) PO SCH (22:17)
[2018-05-14] MEDS: VITAMINS A AND D TOPICAL OINTMENT 60 GM TUBE TP SCH ×4 (00:58→17:32)
[2018-05-14] MEDS: PSYLLIUM 5.85 GM PACKET PO SCH ×3 (05:28→22:24)
[2018-05-14] MEDS: DOCUSATE SODIUM 100 MG CAPSULE (FP) PO SCH ×3 (05:28→22:23)
[2018-05-14] MEDS: diazePAM 5 MG TABLET PO SCH ×2 (10:05→22:23)
[2018-05-14] MEDS: FERROUS SO4 325 MG TABLET (FP) PO SCH (10:05)
[2018-05-14] MEDS: PRENATAL VITAMINS W/ FOLIC ACID TABLET (FP) PO SCH (10:05)
[2018-05-14] MEDS: CLOTRIMAZOLE 1% CREAM 15 GM TUBE TP SCH ×2 (10:05→22:24)
--- NOTE | 2018-05-14 10:46 | PN ---
[facility] Progress Note (SOAP) Subjective: Constipation, sweating, interrupted sleep. Patient c/o chronic constipation after bowel surgery stating castor oil usually helps him have bowel movements. He is requesting castor oil or any other supplement including prune juice. Objective: 05/14/18 10:46 Last Vital Signs Temp Pulse Resp BP Pulse Ox 98.4 F 81 18 127/81 05/14/18 10:44 05/14/18 10:44 05/14/18 10:44 05/14/18 10:44 Laboratory Tests 05/11/18 05/11/18 05/12/18 13:00 15:15 06:00 WBC 5.4 RBC 4.59 Hgb 11.2 L Hct 35.5 MCV 77.3 L MCH 24.4 L MCHC 31.5 L RDW 17.7 H Plt Count 340 D MPV 8.8 Sodium Potassium Chloride Carbon Dioxide Anion Gap BUN Creatinine Creat Clearance w eGFR Random Glucose Calcium Total Bilirubin AST ALT Alkaline Phosphatase Total Protein Albumin Urine Color Yellow Urine Appearance Turbid Urine pH 5.0 Ur Specific [place] 1.030 Urine Protein Negative Urine Glucose (UA) Negative Urine Ketones Negative Urine Blood Negative Urine Nitrite Negative Urine Bilirubin Negative Urine Urobilinogen 2.0 Ur Leukocyte Esterase Negative RPR Titer HIV 1&2 Antibody Screen Negative HIV P24 Antigen Negative 05/12/18 05/12/18 06:00 06:00 WBC RBC Hgb Hct MCV MCH MCHC RDW Plt Count MPV Sodium 142 Potassium 4.7 Chloride 108 H Carbon Dioxide 25 Anion Gap 9 BUN 21 H Creatinine 1.3 Creat Clearance w eGFR 57.10 Random Glucose 108 H Calcium 8.6 Total Bilirubin 0.2 AST 7 L ALT 17 Alkaline Phosphatase 86 Total Protein 7.4 Albumin 3.3 L Urine Color Urine Appearance Urine pH Ur Specific [place] Urine Protein Urine Glucose (UA) Urine Ketones Urine Blood Urine Nitrite Urine Bilirubin Urine Urobilinogen Ur Leukocyte Esterase RPR Titer Nonreactive HIV 1&2 Antibody Screen HIV P24 Antigen Labs reviewed: bun 21, creatinine 1.3, GFR 57.10 Assessment: 05/14/18 10:47 Withdrawal symptoms Noted with prerenal azotemia Plan: Continue detox Prerenal azotemia: encouraged PO water intake
[2018-05-14] MEDS: MAGNESIUM CITRATE 300 ML BOTTLE PO PRN (14:23)
[2018-05-14] MEDS: THIAMINE HCL 100 MG TABLET (FP) PO SCH (22:23)
[2018-05-14] MEDS: MAGNESIUM HYDROX 2400MG/30ML ORAL SUSPENSION 30 ML CUP PO PRN (22:43)
[2018-05-15] MEDS: VITAMINS A AND D TOPICAL OINTMENT 60 GM TUBE TP SCH ×2 (00:47→06:00)
[2018-05-15] MEDS: DOCUSATE SODIUM 100 MG CAPSULE (FP) PO SCH (05:22)
[2018-05-15] MEDS: PSYLLIUM 5.85 GM PACKET PO SCH (05:23)
[2018-05-15 06:40] VITALS: BP 140/92; PULSE 73; TEMP 97
[2018-05-15] MEDS ORDERED: diazePAM 5 MG TABLET PO SCH (10:00)
--- NOTE | 2018-05-15 11:28 | DS ---
[facility] Detox Discharge Summary Admission Date: 05/11/18 Discharge Date: 05/15/18 - History Present History: Alcohol Dependence, Cocaine Dependence Pertinent Past History: GERD HTN Obesity - Physical Exam Results Vital Signs: Vital Signs Temperature 97 F L 05/15/18 06:39 Pulse Rate 73 05/15/18 06:39 Respiratory Rate 20 05/15/18 06:39 Blood Pressure 140/92 05/15/18 06:39 O2 Sat by Pulse Oximetry (%) Pertinent Admission Physical Exam Findings: Withdrawal symptoms Laboratory Tests 05/11/18 05/11/18 05/12/18 13:00 15:15 06:00 WBC 5.4 RBC 4.59 Hgb 11.2 L Hct 35.5 MCV 77.3 L MCH 24.4 L MCHC 31.5 L RDW 17.7 H Plt Count 340 D MPV 8.8 Sodium Potassium Chloride Carbon Dioxide Anion Gap BUN Creatinine Creat Clearance w eGFR Random Glucose Calcium Total Bilirubin AST ALT Alkaline Phosphatase Total Protein Albumin Urine Color Yellow Urine Appearance Turbid Urine pH 5.0 Ur Specific [place] 1.030 Urine Protein Negative Urine Glucose (UA) Negative Urine Ketones Negative Urine Blood Negative Urine Nitrite Negative Urine Bilirubin Negative Urine Urobilinogen 2.0 Ur Leukocyte Esterase Negative RPR Titer HIV 1&2 Antibody Screen Negative HIV P24 Antigen Negative 05/12/18 05/12/18 06:00 06:00 WBC RBC Hgb Hct MCV MCH MCHC RDW Plt Count MPV Sodium 142 Potassium 4.7 Chloride 108 H Carbon Dioxide 25 Anion Gap 9 BUN 21 H Creatinine 1.3 Creat Clearance w eGFR 57.10 Random Glucose 108 H Calcium 8.6 Total Bilirubin 0.2 AST 7 L ALT 17 Alkaline Phosphatase 86 Total Protein 7.4 Albumin 3.3 L Urine Color Urine Appearance Urine pH Ur Specific [place] Urine Protein Urine Glucose (UA) Urine Ketones Urine Blood Urine Nitrite Urine Bilirubin Urine Urobilinogen Ur Leukocyte Esterase RPR Titer Nonreactive HIV 1&2 Antibody Screen HIV P24 Antigen Labs reviewed - Treatment Hospital Course: Detox Protocol Followed, Detoxed Safely, Responded well, Discharged Condition Good - Medication Discharge Medications: Ambulatory Orders Ferrous Sulfate [Feosol] 325 mg PO DAILY #30 ud 01/13/15 Docusate Sodium [Colace -] 100 mg PO TID 04/01/17 Omeprazole 20 mg PO DAILY 04/01/17 - Diagnosis (1) Acute prerenal azotemia Status: Acute (2) Alcohol dependence with uncomplicated withdrawal Status: Acute (3) Nicotine dependence Status: Chronic Qualifiers: Nicotine product type: cigarettes Substance use status: uncomplicated Qualified Code(s): F17.210 - Nicotine dependence, cigarettes, uncomplicated (4) Cocaine dependence, uncomplicated Status: Chronic (5) GERD (gastroesophageal reflux disease) Status: Chronic Qualifiers: Esophagitis presence: esophagitis presence not specified Qualified Code(s) : K21.9 - Gastro-esophageal reflux disease without esophagitis (6) Hypertension Status: Chronic Qualifiers: Hypertension type: unspecified Qualified Code(s): I10 - Essential (primary ) hypertension (7) Obesity Status: Chronic (8) Microcytic anemia Status: Chronic (9) Chronic constipation Status: Chronic - AMA Did Patient Leave Against Medical Advice: No (F/U with your PCP within 1-2 weeks )
== END 2018-05-15 07:33 | disposition home or self-care (01) | DRG 897 ==
LOC: YASAS 10:17 → Y3N 13:55
PROC: HZ2ZZZZ Detoxification Services for Substance Abuse Treatment (ICD-10-PCS; principal; 2018-05-11)
DX: F10.230 Alcohol dependence with withdrawal, uncomplicated (principal); F14.20 Cocaine dependence, uncomplicated; F17.210 Nicotine dependence, cigarettes, uncomplicated; I10 Essential (primary) hypertension; K21.9 Gastro-esophageal reflux disease without esophagitis; D50.9 Iron deficiency anemia, unspecified; B35.3 Tinea pedis; K59.00 Constipation, unspecified; R79.89 Other specified abnormal findings of blood chemistry; E66.9 Obesity, unspecified; Z68.32 Body mass index [BMI] 32.0-32.9, adult; Z85.46 Personal history of malignant neoplasm of prostate; Z98.84 Bariatric surgery status; Z91.013 Allergy to seafood
CPT/HCPCS: 36415; 80053; 81003; 85027; 86593; 87389; 90688; G0008

== ENCOUNTER 2019-05-29 14:30 | Inpatient (IN) | payer OTHER ==
[2019-05-29 17:56] VITALS: BMI 38.2
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
[2019-05-29] MEDS ORDERED: LORazepam 1 MG TABLET PO PRN (21:08)
[2019-05-29] MEDS ORDERED: DICYCLOMINE HCL 10 MG CAPSULE PO PRN (21:08)
[2019-05-29] MEDS ORDERED: P-EPHED 60MG/TRIPROLIDI 2.5MG TABLET PO PRN (21:08)
[2019-05-29] MEDS ORDERED: MAG HYDROX/AL HYDROX/SIMETH 30 ML UNIT-DOSE CUP PO PRN (21:08)
[2019-05-29] MEDS ORDERED: ONDANSETRON *ODT* 4 MG TABLET SL PRN (21:08)
[2019-05-29] MEDS ORDERED: guaiFENesin 200 MG/10 ML 10 ML UNIT-DOSE CUPS PO PRN (21:08)
[2019-05-29] MEDS ORDERED: MELATONIN 5 MG TABLETS PO PRN (21:08)
[2019-05-29] MEDS ORDERED: MAGNESIUM HYDROX 2400MG/30ML ORAL SUSPENSION 30 ML CUP PO PRN (21:08)
[2019-05-29] MEDS ORDERED: BISMUTH SUBSALICYLATE 524 MG/30 ML UD PO PRN (21:08)
[2019-05-29] MEDS ORDERED: MAGNESIUM CITRATE 300 ML BOTTLE PO PRN (21:08)
[2019-05-29] MEDS ORDERED: IBUPROFEN 400 MG TABLET (FP) PO PRN (21:08)
[2019-05-29] MEDS ORDERED: MENTHOL/PHENOL 1 EACH UD MM PRN (21:08)
[2019-05-29] MEDS ORDERED: ACETAMINOPHEN 325 MG TABLET (FP) PO PRN ×2 (21:08)
[2019-05-29] MEDS ORDERED: hydrOXYzine PAMOATE 25 MG CAPSULE (FP) PO PRN (21:08)
[2019-05-29] MEDS ORDERED: NICOTINE POLACRILEX 2 MG GUM BUC PRN (21:08)
[2019-05-29] MEDS ORDERED: METHOCARBAMOL 500 MG TABLET PO PRN (21:08)
[2019-05-29] MEDS: THIAMINE HCL 100 MG TABLET (FP) PO SCH (23:03)
[2019-05-29] MEDS: LORazepam 2 MG TABLET PO SCH (23:03)
[2019-05-30] MEDS: LORazepam 2 MG TABLET PO SCH ×4 (05:48→22:25)
[2019-05-30 09:24] LABS: HEMATOCRIT 33.5 % (35.4-49); HEMOGLOBIN 11.5 GM/dL (11.7-16.9); MCH 27.7 pg (25.7-33.7); MCHC 34.3 g/dl (32.0-35.9); MEAN CELL VOLUME 80.8 fl (80-96); MEAN PLT VOLUME 9.1 fl (7.5-11.1); PLATELET COUNT 174 K/MM3 (134-434); RBC 4.15 M/mm3 (4.00-5.60); RDW 15.9 % (11.9-15.9); WHITE BLOOD COUNT 5.7 K/mm3 (4.0-10.0)
[2019-05-30 09:36] LABS: ALBUMIN 3.6 g/dl (3.4-5.0); BILIRUBIN,TOTAL 0.4 mg/dL (0.2-1); BLOOD UREA NITROGEN 25.8 mg/dL (7-18); CALCIUM 8.2 mg/dL (8.5-10.1); CREATININE 1.3 mg/dL (0.55-1.3); TOT PROT 6.8 g/dl (6.4-8.2)
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
[2019-05-30] MEDS: LISINOPRIL 20 MG TABLET (FP) PO SCH (10:45)
[2019-05-30] MEDS: HYDROCHLOROTHIAZIDE 25 MG TABLET (FP) PO SCH (10:45)
[2019-05-30] MEDS: FERROUS SO4 325 MG TABLET (FP) PO SCH (10:45)
[2019-05-30] MEDS: PRENATAL VITAMINS W/ FOLIC ACID TABLET (FP) PO SCH (10:45)
[2019-05-30] MEDS: PANTOPRAZOLE 20 MG TABLET (FP) PO SCH (10:45)
[2019-05-30] MEDS: NICOTINE 14 MG/24 HOURS TOPICAL PATCH TD SCH (10:47)
--- NOTE | 2019-05-30 14:03 | PN ---
S CIWA - CIWA Score Nausea/Vomitin-Mild Nausea/No Vomiting Muscle Tremors: 4-Moderate,w/Arms Extend Anxiety: 4-Mod. Anxious/Guarded Agitation: 4-Moderately Restless Paroxysmal Sweats: 2 Orientation: 0-Oriented Tacttile Disturbances: 1-Very Mild Itch/Numbness Auditory Disturbances: 1-Very Mild Visual Disturbances: 0-None Headache: 1-Very Mild CIWA-Ar Total Score: 18 BHS Progress Note (SOAP) Subjective: 59 years old male admitted on 05/29/19 for alcohol withdrawal sx management treated with ativan detox regimen feeling tired today limited conversation with satff Objective: 05/30/19 14:04 Vital Signs Temperature 97.7 F 05/30/19 13:37 Pulse Rate 89 05/30/19 13:37 Respiratory Rate 18 05/30/19 13:37 Blood Pressure 111/70 05/30/19 13:37 O2 Sat by Pulse Oximetry (%) Laboratory Last Values WBC 5.7 K/mm3 (4.0-10.0) 05/30/19 07:50 RBC 4.15 M/mm3 (4.00-5.60) 05/30/19 07:50 Hgb 11.5 GM/dL (11.7-16.9) L 05/30/19 07:50 Hct 33.5 % (35.4-49) L 05/30/19 07:50 MCV 80.8 fl (80-96) 05/30/19 07:50 MCH 27.7 pg (25.7-33.7) D 05/30/19 07:50 MCHC 34.3 g/dl (32.0-35.9) 05/30/19 07:50 RDW 15.9 % (11.9-15.9) D 05/30/19 07:50 Plt Count 174 K/MM3 (134-434) D 05/30/19 07:50 MPV 9.1 fl (7.5-11.1) 05/30/19 07:50 Sodium 140 mmol/L (136-145) 05/30/19 07:50 Potassium 4.0 mmol/L (3.5-5.1) 05/30/19 07:50 Chloride 105 mmol/L (98-107) 05/30/19 07:50 Carbon Dioxide 27 mmol/L (21-32) 05/30/19 07:50 Anion Gap 7 MMOL/L (8-16) L 05/30/19 07:50 BUN 25.8 mg/dL (7-18) H 05/30/19 07:50 Creatinine 1.3 mg/dL (0.55-1.3) 05/30/19 07:50 Est GFR (CKD-EPI)AfAm 69.71 05/30/19 07:50 Est GFR (CKD-EPI)NonAf 60.14 05/30/19 07:50 Random Glucose 126 mg/dL (74-106) H 05/30/19 07:50 Calcium 8.2 mg/dL (8.5-10.1) L 05/30/19 07:50 Total Bilirubin 0.4 mg/dL (0.2-1) 05/30/19 07:50 AST 23 U/L (15-37) 05/30/19 07:50 ALT 45 U/L (13-61) 05/30/19 07:50 Alkaline Phosphatase 55 U/L (45-117) 05/30/19 07:50 Total Protein 6.8 g/dl (6.4-8.2) 05/30/19 07:50 Albumin 3.6 g/dl (3.4-5.0) 05/30/19 07:50 RPR Titer Nonreactive (NONREACTIVE) 05/30/19 07:50 lab noted encourage oral fluid Assessment: 05/30/19 14:05 alcohol withdrawal sx Plan: continue ativan detox regimen
[2019-05-30] MEDS: THIAMINE HCL 100 MG TABLET (FP) PO SCH (22:25)
[2019-05-31] MEDS: LORazepam 1 MG TABLET PO SCH ×4 (05:46→22:12)
[2019-05-31] MEDS: DOCUSATE SODIUM 100 MG CAPSULE (FP) PO SCH ×3 (07:04→22:12)
[2019-05-31 09:44] LABS: PH,URINE 7.5 (5.0-8.0); URINE APPEARANCE CLEAR; URINE BILIRUBIN NEGATIVE (NEGATIVE); URINE COLOR YELLOW; URINE GLUCOSE (UA) NEGATIVE (NEGATIVE); URINE KETONE NEGATIVE (NEGATIVE); URINE LEUK ESTERASE NEGATIVE (NEGATIVE); URINE NITRITE NEGATIVE (NEGATIVE); URINE PROTEIN NEGATIVE (NEGATIVE)
[2019-05-31] MEDS: LISINOPRIL 20 MG TABLET (FP) PO SCH (10:09)
[2019-05-31] MEDS: HYDROCHLOROTHIAZIDE 25 MG TABLET (FP) PO SCH (10:09)
[2019-05-31] MEDS: PRENATAL VITAMINS W/ FOLIC ACID TABLET (FP) PO SCH (10:09)
[2019-05-31] MEDS: FERROUS SO4 325 MG TABLET (FP) PO SCH (10:09)
[2019-05-31] MEDS: PANTOPRAZOLE 20 MG TABLET (FP) PO SCH (10:09)
[2019-05-31] MEDS: NICOTINE 14 MG/24 HOURS TOPICAL PATCH TD SCH (10:09)
--- NOTE | 2019-05-31 11:04 | EKG ---
Test Reason : Blood Pressure : / mmHG Vent. Rate : 092 BPM Atrial Rate : 092 BPM P-R Int : 178 ms QRS Dur : 132 ms QT Int : 410 ms P-R-T Axes : 066 -69 023 degrees QTc Int : 507 ms NORMAL SINUS RHYTHM RIGHT BUNDLE BRANCH BLOCK LEFT ANTERIOR FASCICULAR BLOCK BIFASCICULAR BLOCK ABNORMAL ECG WHEN COMPARED WITH ECG OF 21-NOV-2017 18:38, VENT. RATE HAS INCREASED Confirmed by KACIE LYLES MD ([id number]) on 05/31/2019 11:03:45 AM Referred By: Confirmed By:KACIE LYLES MD
--- NOTE | 2019-05-31 11:05 | PN ---
[facility] CIWA - CIWA Score Nausea/Vomitin-Mild Nausea/No Vomiting Muscle Tremors: 3 Anxiety: 3 Agitation: 3 Paroxysmal Sweats: 2 Orientation: 1-Uncertain about Date Tacttile Disturbances: 0-None Auditory Disturbances: 1-Very Mild Visual Disturbances: 0-None Headache: 0-None Present CIWA-Ar Total Score: 14 S Progress Note (SOAP) Subjective: 59 years old male admitted on 05/29/19 for alcohol withdrawal sx management treated with ativan detox regimen patient tolerated well feeling better today that able to sleep through out the night last night appeared well rested Objective: 05/31/19 11:04 Vital Signs Temperature 97.9 F 05/31/19 09:20 Pulse Rate 71 05/31/19 09:20 Respiratory Rate 18 05/31/19 09:20 Blood Pressure 126/73 05/31/19 09:20 O2 Sat by Pulse Oximetry (%) Laboratory Last Values WBC 5.7 K/mm3 (4.0-10.0) 05/30/19 07:50 RBC 4.15 M/mm3 (4.00-5.60) 05/30/19 07:50 Hgb 11.5 GM/dL (11.7-16.9) L 05/30/19 07:50 Hct 33.5 % (35.4-49) L 05/30/19 07:50 MCV 80.8 fl (80-96) 05/30/19 07:50 MCH 27.7 pg (25.7-33.7) D 05/30/19 07:50 MCHC 34.3 g/dl (32.0-35.9) 05/30/19 07:50 RDW 15.9 % (11.9-15.9) D 05/30/19 07:50 Plt Count 174 K/MM3 (134-434) D 05/30/19 07:50 MPV 9.1 fl (7.5-11.1) 05/30/19 07:50 Sodium 140 mmol/L (136-145) 05/30/19 07:50 Potassium 4.0 mmol/L (3.5-5.1) 05/30/19 07:50 Chloride 105 mmol/L (98-107) 05/30/19 07:50 Carbon Dioxide 27 mmol/L (21-32) 05/30/19 07:50 Anion Gap 7 MMOL/L (8-16) L 05/30/19 07:50 BUN 25.8 mg/dL (7-18) H 05/30/19 07:50 Creatinine 1.3 mg/dL (0.55-1.3) 05/30/19 07:50 Est GFR (CKD-EPI)AfAm 69.71 05/30/19 07:50 Est GFR (CKD-EPI)NonAf 60.14 05/30/19 07:50 Random Glucose 126 mg/dL (74-106) H 05/30/19 07:50 Calcium 8.2 mg/dL (8.5-10.1) L 05/30/19 07:50 Total Bilirubin 0.4 mg/dL (0.2-1) 05/30/19 07:50 AST 23 U/L (15-37) 05/30/19 07:50 ALT 45 U/L (13-61) 05/30/19 07:50 Alkaline Phosphatase 55 U/L (45-117) 05/30/19 07:50 Total Protein 6.8 g/dl (6.4-8.2) 05/30/19 07:50 Albumin 3.6 g/dl (3.4-5.0) 05/30/19 07:50 Urine Color Yellow 05/31/19 08:00 Urine Appearance Clear 05/31/19 08:00 Urine pH 7.5 (5.0-8.0) D 05/31/19 08:00 Ur Specific [place] 1.028 (1.010-1.035) 05/31/19 08:00 Urine Protein Negative (NEGATIVE) 05/31/19 08:00 Urine Glucose (UA) Negative (NEGATIVE) 05/31/19 08:00 Urine Ketones Negative (NEGATIVE) 05/31/19 08:00 Urine Blood Negative (NEGATIVE) 05/31/19 08:00 Urine Nitrite Negative (NEGATIVE) 05/31/19 08:00 Urine Bilirubin Negative (NEGATIVE) 05/31/19 08:00 Urine Urobilinogen 1.0 mg/dL (0.2-1.0) 05/31/19 08:00 Ur Leukocyte Esterase Negative (NEGATIVE) 05/31/19 08:00 RPR Titer Nonreactive (NONREACTIVE) 05/30/19 07:50 lab noted 11/04/19 11:05 bun and glucose elevation fasting glucose 05/31/19 11:13 Assessment: 05/31/19 11:14 alcohol withdrawal sx Plan: continue ativan detox regimen
[2019-05-31] MEDS: THIAMINE HCL 100 MG TABLET (FP) PO SCH (22:12)
[2019-06-01] MEDS ORDERED: LORazepam 0.5 MG TABLET PO PRN
[2019-06-01] MEDS: DOCUSATE SODIUM 100 MG CAPSULE (FP) PO SCH ×3 (06:20→22:08)
[2019-06-01] MEDS: LORazepam 0.5 MG TABLET PO SCH ×4 (06:20→22:08)
[2019-06-01] MEDS: LISINOPRIL 20 MG TABLET (FP) PO SCH (10:22)
[2019-06-01] MEDS: PRENATAL VITAMINS W/ FOLIC ACID TABLET (FP) PO SCH (10:22)
[2019-06-01] MEDS: NICOTINE 14 MG/24 HOURS TOPICAL PATCH TD SCH (10:22)
[2019-06-01] MEDS: PANTOPRAZOLE 20 MG TABLET (FP) PO SCH (10:22)
[2019-06-01] MEDS: HYDROCHLOROTHIAZIDE 25 MG TABLET (FP) PO SCH (10:22)
[2019-06-01] MEDS: FERROUS SO4 325 MG TABLET (FP) PO SCH (10:22)
--- NOTE | 2019-06-01 12:54 | PN ---
[facility] CIWA - CIWA Score Nausea/Vomitin-No Nausea/No Vomiting Muscle Tremors: 3 Anxiety: 3 Agitation: 2 Paroxysmal Sweats: 1-Minimal Palms Moist Orientation: 0-Oriented Tacttile Disturbances: 0-None Auditory Disturbances: 0-None Visual Disturbances: 0-None Headache: 0-None Present CIWA-Ar Total Score: 9 BHS Progress Note (SOAP) Subjective: 59 years old male admitted on 05/29/19 for alcohol withdrawal sx management treated with ativan detox regimen patient tolerated well feeling better less tremor mild anxiety Objective: 06/01/19 12:52 Vital Signs Temperature 97.9 F 06/01/19 09:16 Pulse Rate 73 06/01/19 09:16 Respiratory Rate 18 06/01/19 09:16 Blood Pressure 127/85 06/01/19 09:16 O2 Sat by Pulse Oximetry (%) Laboratory Last Values WBC 5.7 K/mm3 (4.0-10.0) 05/30/19 07:50 RBC 4.15 M/mm3 (4.00-5.60) 05/30/19 07:50 Hgb 11.5 GM/dL (11.7-16.9) L 05/30/19 07:50 Hct 33.5 % (35.4-49) L 05/30/19 07:50 MCV 80.8 fl (80-96) 05/30/19 07:50 MCH 27.7 pg (25.7-33.7) D 05/30/19 07:50 MCHC 34.3 g/dl (32.0-35.9) 05/30/19 07:50 RDW 15.9 % (11.9-15.9) D 05/30/19 07:50 Plt Count 174 K/MM3 (134-434) D 05/30/19 07:50 MPV 9.1 fl (7.5-11.1) 05/30/19 07:50 Sodium 140 mmol/L (136-145) 05/30/19 07:50 Potassium 4.0 mmol/L (3.5-5.1) 05/30/19 07:50 Chloride 105 mmol/L (98-107) 05/30/19 07:50 Carbon Dioxide 27 mmol/L (21-32) 05/30/19 07:50 Anion Gap 7 MMOL/L (8-16) L 05/30/19 07:50 BUN 25.8 mg/dL (7-18) H 05/30/19 07:50 Creatinine 1.3 mg/dL (0.55-1.3) 05/30/19 07:50 Est GFR (CKD-EPI)AfAm 69.71 05/30/19 07:50 Est GFR (CKD-EPI)NonAf 60.14 05/30/19 07:50 Random Glucose 126 mg/dL (74-106) H 05/30/19 07:50 Fasting Glucose 113 mg/dL (74-106) H 06/01/19 08:00 Calcium 8.2 mg/dL (8.5-10.1) L 05/30/19 07:50 Total Bilirubin 0.4 mg/dL (0.2-1) 05/30/19 07:50 AST 23 U/L (15-37) 05/30/19 07:50 ALT 45 U/L (13-61) 05/30/19 07:50 Alkaline Phosphatase 55 U/L (45-117) 05/30/19 07:50 Total Protein 6.8 g/dl (6.4-8.2) 05/30/19 07:50 Albumin 3.6 g/dl (3.4-5.0) 05/30/19 07:50 Urine Color Yellow 05/31/19 08:00 Urine Appearance Clear 05/31/19 08:00 Urine pH 7.5 (5.0-8.0) D 05/31/19 08:00 Ur Specific [place] 1.028 (1.010-1.035) 05/31/19 08:00 Urine Protein Negative (NEGATIVE) 05/31/19 08:00 Urine Glucose (UA) Negative (NEGATIVE) 05/31/19 08:00 Urine Ketones Negative (NEGATIVE) 05/31/19 08:00 Urine Blood Negative (NEGATIVE) 05/31/19 08:00 Urine Nitrite Negative (NEGATIVE) 05/31/19 08:00 Urine Bilirubin Negative (NEGATIVE) 05/31/19 08:00 Urine Urobilinogen 1.0 mg/dL (0.2-1.0) 05/31/19 08:00 Ur Leukocyte Esterase Negative (NEGATIVE) 05/31/19 08:00 RPR Titer Nonreactive (NONREACTIVE) 05/30/19 07:50 lab noted fasting glucose elevation patient agrees to return to primary care provider for follow up encourage to utilize community health services Assessment: 06/01/19 12:54 alcohol withdrawal sx Plan: continue ativan detox regimen
[2019-06-01] MEDS: THIAMINE HCL 100 MG TABLET (FP) PO SCH (22:08)
[2019-06-02] MEDS ORDERED: LORazepam 0.5 MG TABLET PO ONE (05:00)
[2019-06-02] MEDS: DOCUSATE SODIUM 100 MG CAPSULE (FP) PO SCH (06:48)
[2019-06-02 09:14] VITALS: BP 100/67; PULSE 18; TEMP 96.4
[2019-06-02] MEDS: LISINOPRIL 20 MG TABLET (FP) PO SCH (10:07)
[2019-06-02] MEDS: FERROUS SO4 325 MG TABLET (FP) PO SCH (10:07)
[2019-06-02] MEDS: PRENATAL VITAMINS W/ FOLIC ACID TABLET (FP) PO SCH (10:07)
[2019-06-02] MEDS: PANTOPRAZOLE 20 MG TABLET (FP) PO SCH (10:07)
[2019-06-02] MEDS: NICOTINE 14 MG/24 HOURS TOPICAL PATCH TD SCH (10:08)
--- NOTE | 2019-06-02 10:40 | EKG ---
Test Reason : Blood Pressure : / mmHG Vent. Rate : 100 BPM Atrial Rate : 088 BPM P-R Int : 000 ms QRS Dur : 110 ms QT Int : 214 ms P-R-T Axes : 000 046 023 degrees QTc Int : 276 ms UNDETERMINED RHYTHM LOW VOLTAGE QRS CANNOT RULE OUT ANTEROSEPTAL INFARCT , NEW ACUTE MT / STEMI ABNORMAL ECG WHEN COMPARED WITH ECG OF 29-MAY-2019 23:06, CURRENT UNDETERMINED RHYTHM PRECLUDES RHYTHM COMPARISON, NEEDS REVIEW (RBBB AND LEFT ANTERIOR FASCICULAR BLOCK) IS NO LONGER PRESENT ACUTE ANTEROSEPTAL INFARCT IS NOW PRESENT Confirmed by BREE ANDERSEN, MIKE ([id number]) on 06/02/2019 10:40:01 AM Referred By: Confirmed By:MIKE GIRON MD
--- NOTE | 2019-06-02 10:40 | EKG ---
Test Reason : Blood Pressure : / mmHG Vent. Rate : 069 BPM Atrial Rate : 069 BPM P-R Int : 172 ms QRS Dur : 142 ms QT Int : 430 ms P-R-T Axes : 058 -49 013 degrees QTc Int : 460 ms NORMAL SINUS RHYTHM RIGHT BUNDLE BRANCH BLOCK LEFT ANTERIOR FASCICULAR BLOCK BIFASCICULAR BLOCK ABNORMAL ECG WHEN COMPARED WITH ECG OF 01-JUN-2019 15:36, PREVIOUS ECG HAS UNDETERMINED RHYTHM, NEEDS REVIEW (RBBB AND LEFT ANTERIOR FASCICULAR BLOCK) IS NOW PRESENT MINIMAL CRITERIA FOR ANTEROSEPTAL INFARCT ARE NO LONGER PRESENT Confirmed by BREE ANDERSEN, MIKE ([id number]) on 06/02/2019 10:39:53 AM Referred By: Confirmed By:MIKE GIRON MD
--- NOTE | 2019-06-02 14:48 | DS ---
[facility] Detox Discharge Summary Admission Date: 05/29/19 Discharge Date: 06/02/19 - History Present History: Alcohol Dependence Additional Comments: 59 years old male admitted on 05/29/19 for alcohol withdrawal sx management treated with ativan detox regiment patient is alert oriented x 3 Cardiac s1s2 regular rate rhythm respiratory clear lung sound bilaterally on auscultation extremities full range of motion - Physical Exam Results Vital Signs: Vital Signs Temperature 96.4 F L 06/02/19 09:13 Pulse Rate 18 L 06/02/19 09:13 Respiratory Rate 102 H 06/02/19 09:13 Blood Pressure 100/67 06/02/19 09:13 O2 Sat by Pulse Oximetry (%) Pertinent Admission Physical Exam Findings: alcohol withdrawal sx Laboratory Last Values WBC 5.7 K/mm3 (4.0-10.0) 05/30/19 07:50 RBC 4.15 M/mm3 (4.00-5.60) 05/30/19 07:50 Hgb 11.5 GM/dL (11.7-16.9) L 05/30/19 07:50 Hct 33.5 % (35.4-49) L 05/30/19 07:50 MCV 80.8 fl (80-96) 05/30/19 07:50 MCH 27.7 pg (25.7-33.7) D 05/30/19 07:50 MCHC 34.3 g/dl (32.0-35.9) 05/30/19 07:50 RDW 15.9 % (11.9-15.9) D 05/30/19 07:50 Plt Count 174 K/MM3 (134-434) D 05/30/19 07:50 MPV 9.1 fl (7.5-11.1) 05/30/19 07:50 Sodium 140 mmol/L (136-145) 05/30/19 07:50 Potassium 4.0 mmol/L (3.5-5.1) 05/30/19 07:50 Chloride 105 mmol/L (98-107) 05/30/19 07:50 Carbon Dioxide 27 mmol/L (21-32) 05/30/19 07:50 Anion Gap 7 MMOL/L (8-16) L 05/30/19 07:50 BUN 25.8 mg/dL (7-18) H 05/30/19 07:50 Creatinine 1.3 mg/dL (0.55-1.3) 05/30/19 07:50 Est GFR (CKD-EPI)AfAm 69.71 05/30/19 07:50 Est GFR (CKD-EPI)NonAf 60.14 05/30/19 07:50 Random Glucose 126 mg/dL (74-106) H 05/30/19 07:50 Fasting Glucose 113 mg/dL (74-106) H 06/01/19 08:00 Calcium 8.2 mg/dL (8.5-10.1) L 05/30/19 07:50 Total Bilirubin 0.4 mg/dL (0.2-1) 05/30/19 07:50 AST 23 U/L (15-37) 05/30/19 07:50 ALT 45 U/L (13-61) 05/30/19 07:50 Alkaline Phosphatase 55 U/L (45-117) 05/30/19 07:50 Total Protein 6.8 g/dl (6.4-8.2) 05/30/19 07:50 Albumin 3.6 g/dl (3.4-5.0) 05/30/19 07:50 Urine Color Yellow 05/31/19 08:00 Urine Appearance Clear 05/31/19 08:00 Urine pH 7.5 (5.0-8.0) D 05/31/19 08:00 Ur Specific [place] 1.028 (1.010-1.035) 05/31/19 08:00 Urine Protein Negative (NEGATIVE) 05/31/19 08:00 Urine Glucose (UA) Negative (NEGATIVE) 05/31/19 08:00 Urine Ketones Negative (NEGATIVE) 05/31/19 08:00 Urine Blood Negative (NEGATIVE) 05/31/19 08:00 Urine Nitrite Negative (NEGATIVE) 05/31/19 08:00 Urine Bilirubin Negative (NEGATIVE) 05/31/19 08:00 Urine Urobilinogen 1.0 mg/dL (0.2-1.0) 05/31/19 08:00 Ur Leukocyte Esterase Negative (NEGATIVE) 05/31/19 08:00 RPR Titer Nonreactive (NONREACTIVE) 05/30/19 07:50 lab noted patient agrees to bringing in lab report to [facility] for follow up with glucose elevation - Treatment Hospital Course: Detox Protocol Followed, Detoxed Safely, Responded well, Discharged Condition Good, Rehab Referral Accepted Patient has Accepted a Rehab Referral to: [facility] - Medication Discharge Medications: Ambulatory Orders Ferrous Sulfate [Feosol] 325 mg PO DAILY #30 ud 01/13/15 Docusate Sodium [Colace -] 200 mg PO TID 04/01/17 Omeprazole 20 mg PO DAILY 04/01/17 Lisinopril/Hydrochlorothiazide [Lisinopril-Hctz 20-25 mg Tab] 20 mg PO DAILY 09/15 - Diagnosis (1) Alcohol dependence with uncomplicated withdrawal Status: Acute (2) Substance induced mood disorder Status: Suspected (3) Anemia Status: Chronic Qualifiers: Anemia type: iron deficiency (4) GERD (gastroesophageal reflux disease) Status: Chronic Qualifiers: Esophagitis presence: esophagitis presence not specified Qualified Code(s) : K21.9 - Gastro-esophageal reflux disease without esophagitis (5) Hypertension Status: Chronic Qualifiers: Hypertension type: unspecified Qualified Code(s): I10 - Essential (primary ) hypertension (6) Nicotine dependence Status: Acute Qualifiers: Nicotine product type: cigarettes Substance use status: in withdrawal Qualified Code(s): F17.213 - Nicotine dependence, cigarettes, with withdrawal - AMA Did Patient Leave Against Medical Advice: No CIWA Score - CIWA Score Nausea/Vomitin-No Nausea/No Vomiting Muscle Tremors: 2 Anxiety: 2 Agitation: 1-Slight > Activity Paroxysmal Sweats: No Perspiration Orientation: 0-Oriented Tacttile Disturbances: 0-None Auditory Disturbances: 0-None Visual Disturbances: 0-None Headache: 0-None Present CIWA-Ar Total Score: 5
== END 2019-06-02 11:01 | disposition home or self-care (01) | DRG 897 ==
LOC: YASAS 14:30 → Y3N 21:40
PROVIDERS: ADMIT Allergy & Immunology; ATTEND Allergy & Immunology
PROC: HZ2ZZZZ Detoxification Services for Substance Abuse Treatment (ICD-10-PCS; principal; 2019-05-29)
DX: F10.230 Alcohol dependence with withdrawal, uncomplicated (principal); F14.20 Cocaine dependence, uncomplicated; F17.213 Nicotine dependence, cigarettes, with withdrawal; F19.24 Other psychoactive substance dependence with psychoactive substance-induced mood disorder; I10 Essential (primary) hypertension; D50.9 Iron deficiency anemia, unspecified; K21.9 Gastro-esophageal reflux disease without esophagitis; B36.0 Pityriasis versicolor; R60.0 Localized edema; E66.9 Obesity, unspecified; Z68.38 Body mass index [BMI] 38.0-38.9, adult; Z85.46 Personal history of malignant neoplasm of prostate; Z90.79 Acquired absence of other genital organ(s); Z98.84 Bariatric surgery status; Z88.0 Allergy status to penicillin; Z91.013 Allergy to seafood
CPT/HCPCS: 36415; 80053; 81003; 82947; 85027; 86593; 93005; 93010

== ENCOUNTER 2021-11-28 17:30 | Inpatient (IN) | payer OTHER ==
[2021-11-28] MEDS ORDERED: LOPERAMIDE HCL 2 MG CAPSULE PO PRN (19:15)
[2021-11-28] MEDS ORDERED: MAGNESIUM CITRATE 300 ML BOTTLE PO PRN (19:15)
[2021-11-28] MEDS ORDERED: MAG HYDROX/AL HYDROX/SIMETH 30 ML UNIT-DOSE CUP PO PRN (19:15)
[2021-11-28] MEDS ORDERED: DICYCLOMINE HCL 10 MG CAPSULE PO PRN (19:15)
[2021-11-28] MEDS ORDERED: BISMUTH SUBSALICYLATE 524 MG/30 ML PO PRN (19:15)
[2021-11-28] MEDS ORDERED: METHOCARBAMOL 500 MG TABLET PO PRN (19:15)
[2021-11-28] MEDS ORDERED: ONDANSETRON *ODT* 4 MG TABLET SL PRN (19:15)
[2021-11-28] MEDS ORDERED: ACETAMINOPHEN 325 MG TABLET (FP) PO PRN ×2 (19:15)
[2021-11-28] MEDS ORDERED: BENZOCAINE/MENTHOL (CHLORASEPTIC ) LOZENGE MM PRN (19:15)
[2021-11-28] MEDS ORDERED: MAGNESIUM HYDROX 2400MG/30ML ORAL SUSPENSION 30 ML CUP PO PRN (19:15)
[2021-11-28] MEDS ORDERED: LORazepam 1 MG TABLET PO PRN (19:17)
[2021-11-28] MEDS: TRIAMCINOLONE ACET 0.025% CREAM 15 GM TUBE TP SCH (22:41)
[2021-11-28] MEDS: KETOCONAZOLE 2% CREAM - 60GM TUBE TP SCH (22:41)
[2021-11-28] MEDS: ATORVASTATIN CA 40 MG TABLET (FP) PO SCH (22:42)
[2021-11-28] MEDS: LORazepam 2 MG TABLET PO SCH (22:43)
[2021-11-28] MEDS: THIAMINE HCL 100 MG TABLET (FP) PO SCH (22:43)
[2021-11-29] MEDS: LORazepam 2 MG TABLET PO SCH ×4 (06:22→23:09)
[2021-11-29] MEDS ORDERED: CHOLECALCIFEROL (VIT D3) 400 UNIT (10 MCG) TABLET PO SCH (10:00)
[2021-11-29] MEDS ORDERED: PATIENT'S OWN MEDICATION (NON-FORMULARY) (Lisinopril/Hydrochlorothiazide [Lisinopril-Hctz PO SCH (10:00)
[2021-11-29] MEDS: FOLIC ACID 1 MG TABLET (FP) PO SCH (10:45)
[2021-11-29] MEDS: LISINOPRIL 20 MG TABLET PO SCH (10:45)
[2021-11-29] MEDS: PATIENT'S OWN MEDICATION (NON-FORMULARY) (Linaclotide [Linzess] 145 MCG Capsule) PO SCH (10:45)
[2021-11-29] MEDS: HYDROCHLOROTHIAZIDE 25 MG TABLET (FP) PO SCH (10:46)
[2021-11-29] MEDS: PRENATAL VITAMINS W/ FOLIC ACID TABLET (FP) PO SCH (10:48)
[2021-11-29] MEDS: TRIAMCINOLONE ACET 0.025% CREAM 15 GM TUBE TP SCH (10:49)
[2021-11-29] MEDS: KETOCONAZOLE 2% CREAM - 60GM TUBE TP SCH (10:59)
[2021-11-29 11:04] LABS: HEMATOCRIT 33.6 % (35.4-49); HEMOGLOBIN 10.7 GM/dL (11.7-16.9); MCH 25.3 pg (25.7-33.7); MEAN CELL VOLUME 79.1 fl (80-96); MEAN PLT VOLUME 9.2 fl (7.5-11.1); PLATELET COUNT 185 10^3/uL (134-434); RBC 4.24 M/mm3 (4.00-5.60); RDW 16.3 % (11.9-15.9); WHITE BLOOD COUNT 4.5 K/mm3 (4.0-10.0)
[2021-11-29 12:36] LABS: ALBUMIN 3.2 g/dl (3.4-5.0); CALCIUM 8.4 mg/dL (8.5-10.1)
[2021-11-29 12:37] LABS: BLOOD UREA NITROGEN 25.8 mg/dL (7-18)
[2021-11-29 12:39] LABS: CREATININE 1.4 mg/dL (0.55-1.3)
[2021-11-29 12:41] LABS: TOT PROT 6.1 g/dl (6.4-8.2)
[2021-11-29 12:42] LABS: BILIRUBIN,TOTAL 0.7 mg/dL (0.2-1)
[2021-11-29] MEDS: CHOLECALCIFEROL (VIT D3) 1,000 UNIT (25 MCG) TABLET PO SCH (13:45)
[2021-11-29 17:00] LABS: URINE APPEARANCE CLEAR; URINE BILIRUBIN NEGATIVE (NEGATIVE); URINE COLOR YELLOW; URINE GLUCOSE (UA) NEGATIVE (NEGATIVE); URINE KETONE TRACE (NEGATIVE); URINE LEUK ESTERASE NEGATIVE (NEGATIVE); URINE NITRITE NEGATIVE (NEGATIVE); URINE PROTEIN TRACE (NEGATIVE)
[2021-11-29] MEDS ORDERED: PATIENT'S OWN MEDICATION (NON-FORMULARY) (Linaclotide [Linzess] 145 MCG) PO SCH (22:00)
[2021-11-29] MEDS: ATORVASTATIN CA 40 MG TABLET (FP) PO SCH (23:08)
[2021-11-29] MEDS: THIAMINE HCL 100 MG TABLET (FP) PO SCH (23:09)
[2021-11-30] MEDS: PATIENT'S OWN MEDICATION (NON-FORMULARY) (Linaclotide [Linzess] 145 MCG Capsule) PO SCH (01:26)
[2021-11-30] MEDS: LORazepam 1 MG TABLET PO SCH ×4 (06:54→23:49)
[2021-11-30] MEDS: LISINOPRIL 20 MG TABLET PO SCH (10:13)
[2021-11-30] MEDS: HYDROCHLOROTHIAZIDE 25 MG TABLET (FP) PO SCH (10:13)
[2021-11-30] MEDS: CHOLECALCIFEROL (VIT D3) 1,000 UNIT (25 MCG) TABLET PO SCH (10:13)
[2021-11-30] MEDS: FOLIC ACID 1 MG TABLET (FP) PO SCH (10:13)
[2021-11-30] MEDS: PRENATAL VITAMINS W/ FOLIC ACID TABLET (FP) PO SCH (10:13)
[2021-11-30] MEDS: hydrOXYzine PAMOATE 25 MG CAPSULE (FP) PO PRN (10:13)
[2021-11-30] MEDS: TRIAMCINOLONE ACET 0.025% CREAM 15 GM TUBE TP SCH (10:16)
[2021-11-30] MEDS: KETOCONAZOLE 2% CREAM - 60GM TUBE TP SCH (10:16)
[2021-11-30 10:24] LABS: BLOOD UREA NITROGEN 18.5 mg/dL (7-18)
[2021-11-30 10:28] LABS: CREATININE 1.2 mg/dL (0.55-1.3)
[2021-11-30 12:10] LABS: SARS-CoV-2 NAA Not Detected (Not Detected)
[2021-11-30] MEDS: THIAMINE HCL 100 MG TABLET (FP) PO SCH (23:35)
[2021-11-30] MEDS: ATORVASTATIN CA 40 MG TABLET (FP) PO SCH (23:35)
[2021-11-30] MEDS ORDERED: LINACLOTIDE 145 MCG PO ONE (23:45)
[2021-12-01] MEDS ORDERED: LORazepam 0.5 MG TABLET PO PRN
[2021-12-01] MEDS: LORazepam 0.5 MG TABLET PO SCH ×4 (06:28→22:42)
[2021-12-01] MEDS: PRENATAL VITAMINS W/ FOLIC ACID TABLET (FP) PO SCH (10:10)
[2021-12-01] MEDS: LINZESS 145 MCG PO SCH (10:10)
[2021-12-01] MEDS: CHOLECALCIFEROL (VIT D3) 1,000 UNIT (25 MCG) TABLET PO SCH (10:10)
[2021-12-01] MEDS: FOLIC ACID 1 MG TABLET (FP) PO SCH (10:10)
[2021-12-01] MEDS: LISINOPRIL 20 MG TABLET PO SCH (10:10)
[2021-12-01] MEDS: HYDROCHLOROTHIAZIDE 25 MG TABLET (FP) PO SCH (10:10)
[2021-12-01] MEDS: TRIAMCINOLONE ACET 0.025% CREAM 15 GM TUBE TP SCH (10:11)
[2021-12-01] MEDS: KETOCONAZOLE 2% CREAM - 60GM TUBE TP SCH (10:11)
[2021-12-01] MEDS: THIAMINE HCL 100 MG TABLET (FP) PO SCH (22:43)
[2021-12-01] MEDS: ATORVASTATIN CA 40 MG TABLET (FP) PO SCH (22:43)
[2021-12-02] MEDS ORDERED: LORazepam 0.5 MG TABLET PO ONE (05:00)
[2021-12-02] MEDS: HYDROCHLOROTHIAZIDE 25 MG TABLET (FP) PO SCH (10:18)
[2021-12-02] MEDS: LINZESS 145 MCG PO SCH (10:19)
[2021-12-02] MEDS: TRIAMCINOLONE ACET 0.025% CREAM 15 GM TUBE TP SCH (10:19)
[2021-12-02] MEDS: KETOCONAZOLE 2% CREAM - 60GM TUBE TP SCH (10:19)
[2021-12-02] MEDS: LISINOPRIL 20 MG TABLET PO SCH (10:19)
[2021-12-02] MEDS: FOLIC ACID 1 MG TABLET (FP) PO SCH (10:19)
[2021-12-02] MEDS: PRENATAL VITAMINS W/ FOLIC ACID TABLET (FP) PO SCH (10:19)
[2021-12-02] MEDS: CHOLECALCIFEROL (VIT D3) 1,000 UNIT (25 MCG) TABLET PO SCH (10:20)
[2021-12-02] MEDS: PANTOPRAZOLE 40 MG TABLET PO SCH ×2 (13:08→22:24)
[2021-12-02] MEDS: THIAMINE HCL 100 MG TABLET (FP) PO SCH (22:24)
[2021-12-02] MEDS: ATORVASTATIN CA 40 MG TABLET (FP) PO SCH (22:24)
[2021-12-03] MEDS: hydrOXYzine PAMOATE 25 MG CAPSULE (FP) PO PRN (10:24)
[2021-12-03] MEDS: PANTOPRAZOLE 40 MG TABLET PO SCH ×2 (10:24→21:20)
[2021-12-03] MEDS: HYDROCHLOROTHIAZIDE 25 MG TABLET (FP) PO SCH (10:24)
[2021-12-03] MEDS: LINZESS 145 MCG PO SCH (10:25)
[2021-12-03] MEDS: TRIAMCINOLONE ACET 0.025% CREAM 15 GM TUBE TP SCH (10:25)
[2021-12-03] MEDS: KETOCONAZOLE 2% CREAM - 60GM TUBE TP SCH (10:25)
[2021-12-03] MEDS: LISINOPRIL 20 MG TABLET PO SCH (10:25)
[2021-12-03] MEDS: FOLIC ACID 1 MG TABLET (FP) PO SCH (10:25)
[2021-12-03] MEDS: PRENATAL VITAMINS W/ FOLIC ACID TABLET (FP) PO SCH (10:25)
[2021-12-03] MEDS: CHOLECALCIFEROL (VIT D3) 1,000 UNIT (25 MCG) TABLET PO SCH (10:26)
[2021-12-03] MEDS: MELATONIN 5 MG TABLETS PO PRN (21:17)
[2021-12-03] MEDS: THIAMINE HCL 100 MG TABLET (FP) PO SCH (21:17)
[2021-12-03] MEDS: ATORVASTATIN CA 40 MG TABLET (FP) PO SCH (21:20)
[2021-12-04] MEDS: IBUPROFEN 400 MG TABLET (FP) PO PRN (06:30)
[2021-12-04] MEDS: PANTOPRAZOLE 40 MG TABLET PO SCH ×2 (10:03→21:35)
[2021-12-04] MEDS: HYDROCHLOROTHIAZIDE 25 MG TABLET (FP) PO SCH (10:03)
[2021-12-04] MEDS: PRENATAL VITAMINS W/ FOLIC ACID TABLET (FP) PO SCH (10:04)
[2021-12-04] MEDS: LISINOPRIL 20 MG TABLET PO SCH (10:04)
[2021-12-04] MEDS: LINZESS 145 MCG PO SCH (10:04)
[2021-12-04] MEDS: FOLIC ACID 1 MG TABLET (FP) PO SCH (10:38)
[2021-12-04] MEDS: CHOLECALCIFEROL (VIT D3) 1,000 UNIT (25 MCG) TABLET PO SCH (10:38)
[2021-12-04] MEDS: KETOCONAZOLE 2% CREAM - 60GM TUBE TP SCH (11:00)
[2021-12-04] MEDS: TRIAMCINOLONE ACET 0.025% CREAM 15 GM TUBE TP SCH (11:00)
[2021-12-04] MEDS: THIAMINE HCL 100 MG TABLET (FP) PO SCH (21:35)
[2021-12-04] MEDS: MELATONIN 5 MG TABLETS PO PRN (21:35)
[2021-12-04] MEDS: ATORVASTATIN CA 40 MG TABLET (FP) PO SCH (21:35)
[2021-12-05] MEDS: IBUPROFEN 400 MG TABLET (FP) PO PRN (06:51)
[2021-12-05] MEDS: PRENATAL VITAMINS W/ FOLIC ACID TABLET (FP) PO SCH (09:39)
[2021-12-05] MEDS: PANTOPRAZOLE 40 MG TABLET PO SCH ×2 (09:39→21:22)
[2021-12-05] MEDS: LISINOPRIL 20 MG TABLET PO SCH (09:39)
[2021-12-05] MEDS: HYDROCHLOROTHIAZIDE 25 MG TABLET (FP) PO SCH (09:39)
[2021-12-05] MEDS: KETOCONAZOLE 2% CREAM - 60GM TUBE TP SCH (09:40)
[2021-12-05] MEDS: TRIAMCINOLONE ACET 0.025% CREAM 15 GM TUBE TP SCH (09:40)
[2021-12-05] MEDS: LINZESS 145 MCG PO SCH (09:41)
[2021-12-05] MEDS: CHOLECALCIFEROL (VIT D3) 1,000 UNIT (25 MCG) TABLET PO SCH (12:00)
[2021-12-05] MEDS: FOLIC ACID 1 MG TABLET (FP) PO SCH (12:00)
[2021-12-05] MEDS: ATORVASTATIN CA 40 MG TABLET (FP) PO SCH (21:22)
[2021-12-05] MEDS: THIAMINE HCL 100 MG TABLET (FP) PO SCH (21:22)
[2021-12-06] MEDS: IBUPROFEN 400 MG TABLET (FP) PO PRN (06:22)
[2021-12-06] MEDS: KETOCONAZOLE 2% CREAM - 60GM TUBE TP SCH (09:37)
[2021-12-06] MEDS: HYDROCHLOROTHIAZIDE 25 MG TABLET (FP) PO SCH (09:38)
[2021-12-06] MEDS: FOLIC ACID 1 MG TABLET (FP) PO SCH (09:38)
[2021-12-06] MEDS: PANTOPRAZOLE 40 MG TABLET PO SCH ×2 (09:38→21:05)
[2021-12-06] MEDS: LISINOPRIL 20 MG TABLET PO SCH (09:38)
[2021-12-06] MEDS: CHOLECALCIFEROL (VIT D3) 1,000 UNIT (25 MCG) TABLET PO SCH (09:38)
[2021-12-06] MEDS: PRENATAL VITAMINS W/ FOLIC ACID TABLET (FP) PO SCH (09:39)
[2021-12-06] MEDS: TRIAMCINOLONE ACET 0.025% CREAM 15 GM TUBE TP SCH (09:40)
[2021-12-06] MEDS: LINZESS 145 MCG PO SCH (09:40)
[2021-12-06] MEDS: P-EPHED 60MG/TRIPROLIDI 2.5MG TABLET PO PRN (17:37)
[2021-12-06] MEDS: MENTHOL/PHENOL 1 EACH UD MM PRN ×2 (17:37→21:06)
[2021-12-06] MEDS: ATORVASTATIN CA 40 MG TABLET (FP) PO SCH (21:05)
[2021-12-06] MEDS: THIAMINE HCL 100 MG TABLET (FP) PO SCH (21:05)
[2021-12-06] MEDS ORDERED: SUVOREXANT 10 MG TABLET PO PRN (22:00)
[2021-12-07] MEDS: MENTHOL/PHENOL 1 EACH UD MM PRN (03:56)
[2021-12-07] MEDS: IBUPROFEN 400 MG TABLET (FP) PO PRN (06:55)
[2021-12-07] MEDS: P-EPHED 60MG/TRIPROLIDI 2.5MG TABLET PO PRN (06:55)
[2021-12-07] MEDS: LINZESS 145 MCG PO SCH (09:55)
[2021-12-07] MEDS: PANTOPRAZOLE 40 MG TABLET PO SCH ×2 (09:55→21:49)
[2021-12-07] MEDS: PRENATAL VITAMINS W/ FOLIC ACID TABLET (FP) PO SCH (09:55)
[2021-12-07] MEDS: HYDROCHLOROTHIAZIDE 25 MG TABLET (FP) PO SCH (09:55)
[2021-12-07] MEDS: TRIAMCINOLONE ACET 0.025% CREAM 15 GM TUBE TP SCH (09:56)
[2021-12-07] MEDS: LISINOPRIL 20 MG TABLET PO SCH (09:56)
[2021-12-07] MEDS: CHOLECALCIFEROL (VIT D3) 1,000 UNIT (25 MCG) TABLET PO SCH (09:56)
[2021-12-07] MEDS: KETOCONAZOLE 2% CREAM - 60GM TUBE TP SCH (09:56)
[2021-12-07] MEDS: FOLIC ACID 1 MG TABLET (FP) PO SCH (12:58)
[2021-12-07] MEDS: guaiFENesin 600 MG TABLET.ER (FP) PO SCH ×2 (12:58→21:49)
[2021-12-07] MEDS: AMOX TR/POT CLAV 875MG/125MG TABLETS (FP) PO SCH ×2 (12:58→18:01)
[2021-12-07] MEDS: ATORVASTATIN CA 40 MG TABLET (FP) PO SCH (21:49)
[2021-12-07] MEDS: THIAMINE HCL 100 MG TABLET (FP) PO SCH (21:49)
[2021-12-07] MEDS ORDERED: SUVOREXANT 15 MG TABLET PO PRN (22:00)
[2021-12-08 00:11] LABS: SARS-CoV-2 NAA Detected (Not Detected)
[2021-12-08] MEDS: AMOX TR/POT CLAV 875MG/125MG TABLETS (FP) PO SCH ×2 (07:04→17:08)
[2021-12-08] MEDS: LINZESS 145 MCG PO SCH (09:35)
[2021-12-08] MEDS: FOLIC ACID 1 MG TABLET (FP) PO SCH (09:35)
[2021-12-08] MEDS: TRIAMCINOLONE ACET 0.025% CREAM 15 GM TUBE TP SCH (09:35)
[2021-12-08] MEDS: HYDROCHLOROTHIAZIDE 25 MG TABLET (FP) PO SCH (09:35)
[2021-12-08] MEDS: LISINOPRIL 20 MG TABLET PO SCH (09:35)
[2021-12-08] MEDS: PRENATAL VITAMINS W/ FOLIC ACID TABLET (FP) PO SCH (09:35)
[2021-12-08] MEDS: KETOCONAZOLE 2% CREAM - 60GM TUBE TP SCH (09:35)
[2021-12-08] MEDS: PANTOPRAZOLE 40 MG TABLET PO SCH ×2 (09:35→21:25)
[2021-12-08] MEDS: CHOLECALCIFEROL (VIT D3) 1,000 UNIT (25 MCG) TABLET PO SCH (09:35)
[2021-12-08] MEDS: guaiFENesin 600 MG TABLET.ER (FP) PO SCH ×2 (09:35→21:25)
[2021-12-08] MEDS: MENTHOL/PHENOL 1 EACH UD MM PRN (15:30)
[2021-12-08] MEDS: THIAMINE HCL 100 MG TABLET (FP) PO SCH (21:24)
[2021-12-08] MEDS: ATORVASTATIN CA 40 MG TABLET (FP) PO SCH (21:25)
[2021-12-09] MEDS: AMOX TR/POT CLAV 875MG/125MG TABLETS (FP) PO SCH ×2 (07:10→17:02)
[2021-12-09] MEDS: PANTOPRAZOLE 40 MG TABLET PO SCH ×2 (09:34→21:27)
[2021-12-09] MEDS: guaiFENesin 600 MG TABLET.ER (FP) PO SCH ×2 (09:34→21:27)
[2021-12-09] MEDS: HYDROCHLOROTHIAZIDE 25 MG TABLET (FP) PO SCH (09:34)
[2021-12-09] MEDS: FOLIC ACID 1 MG TABLET (FP) PO SCH (09:34)
[2021-12-09] MEDS: LISINOPRIL 20 MG TABLET PO SCH (09:34)
[2021-12-09] MEDS: PRENATAL VITAMINS W/ FOLIC ACID TABLET (FP) PO SCH (09:34)
[2021-12-09] MEDS: CHOLECALCIFEROL (VIT D3) 1,000 UNIT (25 MCG) TABLET PO SCH (09:34)
[2021-12-09] MEDS: LINZESS 145 MCG PO SCH (09:34)
[2021-12-09] MEDS: TRIAMCINOLONE ACET 0.025% CREAM 15 GM TUBE TP SCH (09:35)
[2021-12-09] MEDS: KETOCONAZOLE 2% CREAM - 60GM TUBE TP SCH (09:35)
[2021-12-09] MEDS: ATORVASTATIN CA 40 MG TABLET (FP) PO SCH (21:27)
[2021-12-09] MEDS: THIAMINE HCL 100 MG TABLET (FP) PO SCH (21:28)
[2021-12-09] MEDS ORDERED: SUVOREXANT 15 MG TABLET PO PRN (22:00)
[2021-12-10] MEDS: AMOX TR/POT CLAV 875MG/125MG TABLETS (FP) PO SCH ×2 (07:14→17:55)
[2021-12-10 09:26] VITALS: BP 126/81; PULSE 100; TEMP 96.8
[2021-12-10] MEDS: LINZESS 145 MCG PO SCH (10:56)
[2021-12-10] MEDS: FOLIC ACID 1 MG TABLET (FP) PO SCH (10:56)
[2021-12-10] MEDS: KETOCONAZOLE 2% CREAM - 60GM TUBE TP SCH (10:56)
[2021-12-10] MEDS: CHOLECALCIFEROL (VIT D3) 1,000 UNIT (25 MCG) TABLET PO SCH (10:56)
[2021-12-10] MEDS: PRENATAL VITAMINS W/ FOLIC ACID TABLET (FP) PO SCH (10:56)
[2021-12-10] MEDS: LISINOPRIL 20 MG TABLET PO SCH (10:56)
[2021-12-10] MEDS: HYDROCHLOROTHIAZIDE 25 MG TABLET (FP) PO SCH (10:56)
[2021-12-10] MEDS: TRIAMCINOLONE ACET 0.025% CREAM 15 GM TUBE TP SCH (10:56)
[2021-12-10] MEDS: PANTOPRAZOLE 40 MG TABLET PO SCH (10:56)
[2021-12-10] MEDS: guaiFENesin 600 MG TABLET.ER (FP) PO SCH (10:56)
== END 2021-12-10 17:25 | disposition home or self-care (01) | DRG 895 ==
LOC: YASAS 17:30 → Y3N 20:13 → Y3E 12-03 13:07
PROVIDERS: ADMIT Allergy & Immunology; ATTEND Allergy & Immunology
PROC: HZ2ZZZZ Detoxification Services for Substance Abuse Treatment (ICD-10-PCS; 2021-11-28)
PROC: HZ42ZZZ Group Counseling for Substance Abuse Treatment, Cognitive-Behavioral (ICD-10-PCS; principal; 2021-12-03)
DX: F10.20 Alcohol dependence, uncomplicated (principal); U07.1 COVID-19; F14.20 Cocaine dependence, uncomplicated; F19.282 Other psychoactive substance dependence with psychoactive substance-induced sleep disorder; Z68.41 Body mass index [BMI] 40.0-44.9, adult; F17.210 Nicotine dependence, cigarettes, uncomplicated; D64.9 Anemia, unspecified; K21.9 Gastro-esophageal reflux disease without esophagitis; I25.10 Atherosclerotic heart disease of native coronary artery without angina pectoris; I10 Essential (primary) hypertension; G47.00 Insomnia, unspecified; E78.5 Hyperlipidemia, unspecified; E66.9 Obesity, unspecified; E11.65 Type 2 diabetes mellitus with hyperglycemia; Z79.84 Long term (current) use of oral hypoglycemic drugs; Z59.00 Homelessness unspecified; Z88.8 Allergy status to other drugs, medicaments and biological substances; Z91.013 Allergy to seafood
CPT/HCPCS: 36415; 71045-TC-FY; 73630-TC-RT-FY; 80053; 81003; 82565; 82962; 84520; 85027; 86780; 87811; C9803-CS; U0003; U0005

== ENCOUNTER 2022-10-29 16:28 | Inpatient (IN) | payer OTHER ==
[2022-10-29 17:57] VITALS: BMI 38.5
[2022-10-29] MEDS ORDERED: LOPERAMIDE HCL 2 MG CAPSULE PO PRN (19:48)
[2022-10-29] MEDS ORDERED: POLYETHYLENE GLYCOL (HEALTHYLAX) 3350 17 GM PACKET PO PRN (19:48)
[2022-10-29] MEDS ORDERED: ACETAMINOPHEN 325 MG TABLET (FP) PO PRN (19:48)
[2022-10-29] MEDS ORDERED: MAGNESIUM HYDROX 2400MG/30ML ORAL SUSPENSION 30 ML CUP PO PRN (19:48)
[2022-10-29] MEDS ORDERED: guaiFENesin 600 MG TABLET.ER (FP) PO PRN (19:48)
[2022-10-29] MEDS ORDERED: BENZONATATE 200 MG CAPSULE PO PRN (19:48)
[2022-10-29] MEDS ORDERED: IBUPROFEN 400 MG TABLET (FP) PO PRN (19:48)
[2022-10-29] MEDS ORDERED: hydrOXYzine PAMOATE 25 MG CAPSULE (FP) PO PRN (19:48)
[2022-10-29] MEDS ORDERED: NALOXONE HCL (KLOXXADO) 8 MG SPRAY NS PRN (19:48)
[2022-10-29] MEDS ORDERED: METHOCARBAMOL 500 MG TABLET PO PRN (19:48)
[2022-10-29] MEDS ORDERED: NICOTINE 10 MG CARTRIDGE (INHALER) IH PRN (19:48)
[2022-10-29] MEDS ORDERED: MAG HYDROX/AL HYDROX/SIMETH 30 ML UNIT-DOSE CUP PO PRN (19:48)
[2022-10-29] MEDS ORDERED: IBUPROFEN 600 MG TABLET (FP) PO PRN (19:48)
[2022-10-29] MEDS ORDERED: ONDANSETRON *ODT* 4 MG TABLET SL PRN (19:48)
[2022-10-29] MEDS ORDERED: DICYCLOMINE HCL 10 MG CAPSULE PO PRN (19:48)
[2022-10-29] MEDS ORDERED: BISMUTH SUBSALICYLATE 524 MG/30 ML PO PRN (19:48)
[2022-10-29] MEDS ORDERED: BENZOCAINE/MENTHOL (CHLORASEPTIC ) LOZENGE MM PRN (19:48)
[2022-10-29] MEDS ORDERED: NALOXONE HCL 0.4 MG/ML VIAL IM PRN (19:48)
[2022-10-29] MEDS ORDERED: diazePAM 5 MG TABLET PO PRN (19:52)
[2022-10-29] MEDS: ATORVASTATIN CA 40 MG TABLET (FP) PO SCH (22:25)
[2022-10-29] MEDS: THIAMINE HCL 100 MG TABLET (FP) PO SCH (22:25)
[2022-10-29] MEDS: MELATONIN 5 MG TABLETS PO SCH (22:26)
[2022-10-29] MEDS: diazePAM 5 MG TABLET PO SCH (23:00)
[2022-10-30] MEDS: diazePAM 5 MG TABLET PO SCH ×4 (05:42→22:47)
[2022-10-30] MEDS ORDERED: LISINOPRIL 20 MG TABLET PO SCH (10:00)
[2022-10-30] MEDS ORDERED: PATIENT'S OWN MEDICATION (NON-FORMULARY) (Lisinopril/Hydrochlorothiazide [Lisinopril-Hctz PO SCH (10:00)
[2022-10-30] MEDS: HYDROCHLOROTHIAZIDE 25 MG TABLET (FP) PO SCH (10:15)
[2022-10-30] MEDS: TRIAMCINOLONE ACET 0.025% CREAM 15 GM TUBE TP SCH (10:15)
[2022-10-30] MEDS: PANTOPRAZOLE 20 MG TABLET PO SCH (10:15)
[2022-10-30] MEDS: PATIENT'S OWN MEDICATION (NON-FORMULARY) (Linaclotide [Linzess] 145 MCG Capsule) PO SCH (10:16)
[2022-10-30] MEDS: KETOCONAZOLE 2% CREAM - 60GM TUBE TP SCH (10:17)
[2022-10-30] MEDS: PRENATAL VITAMINS W/ FOLIC ACID TABLET (FP) PO SCH (10:17)
[2022-10-30 12:57] LABS: ALBUMIN 3.4 g/dl (3.4-5.0); BLOOD UREA NITROGEN 27.2 mg/dL (7-18); CALCIUM 8.4 mg/dL (8.5-10.1)
[2022-10-30 13:00] LABS: CREATININE 1.4 mg/dL (0.55-1.3)
[2022-10-30] MEDS ORDERED: SACUBITRIL/VALSARTAN 49 MG-51 MG TABLET PO SCH (13:00)
[2022-10-30 13:02] LABS: BILIRUBIN,TOTAL 0.4 mg/dL (0.2-1); HEMATOCRIT 34.4 % (35.4-49); HEMOGLOBIN 11.3 GM/dL (11.7-16.9); MCH 25.5 pg (25.7-33.7); MEAN CELL VOLUME 77.3 fl (80-96); MEAN PLT VOLUME 9.2 fl (7.5-11.1); PLATELET COUNT 160 10^3/uL (134-434); RBC 4.45 M/mm3 (4.00-5.60); RDW 17.9 % (11.9-15.9); TOT PROT 6.7 g/dl (6.4-8.2); WHITE BLOOD COUNT 5.1 K/mm3 (4.0-10.0)
[2022-10-30] MEDS: APIXABAN 5 MG TABLET PO SCH ×2 (14:07→22:47)
[2022-10-30] MEDS: AMIODARONE HCL 200 MG TABLET PO SCH (14:08)
[2022-10-30] MEDS: CARVEDILOL 12.5 MG TABLET (FP) PO SCH ×2 (14:08→22:47)
[2022-10-30] MEDS: THIAMINE HCL 100 MG TABLET (FP) PO SCH (22:47)
[2022-10-30] MEDS: ATORVASTATIN CA 40 MG TABLET (FP) PO SCH (22:47)
[2022-10-30] MEDS: MELATONIN 5 MG TABLETS PO SCH (22:49)
[2022-10-31] MEDS: diazePAM 5 MG TABLET PO SCH ×3 (05:35→22:42)
[2022-10-31] MEDS: APIXABAN 5 MG TABLET PO SCH ×2 (10:24→22:38)
[2022-10-31] MEDS: AMIODARONE HCL 200 MG TABLET PO SCH (10:24)
[2022-10-31] MEDS: PANTOPRAZOLE 20 MG TABLET PO SCH (10:24)
[2022-10-31] MEDS: HYDROCHLOROTHIAZIDE 25 MG TABLET (FP) PO SCH (10:24)
[2022-10-31] MEDS: TRIAMCINOLONE ACET 0.025% CREAM 15 GM TUBE TP SCH (10:25)
[2022-10-31] MEDS: CARVEDILOL 12.5 MG TABLET (FP) PO SCH ×2 (10:25→22:38)
[2022-10-31] MEDS: PRENATAL VITAMINS W/ FOLIC ACID TABLET (FP) PO SCH (10:26)
[2022-10-31] MEDS: KETOCONAZOLE 2% CREAM - 60GM TUBE TP SCH (10:26)
[2022-10-31] MEDS: PATIENT'S OWN MEDICATION (NON-FORMULARY) (Linaclotide [Linzess] 145 MCG Capsule) PO SCH (10:26)
[2022-10-31] MEDS: ATORVASTATIN CA 40 MG TABLET (FP) PO SCH (22:38)
[2022-10-31] MEDS: THIAMINE HCL 100 MG TABLET (FP) PO SCH (22:38)
[2022-10-31] MEDS: MELATONIN 5 MG TABLETS PO SCH (23:01)
[2022-11-01] MEDS: diazePAM 5 MG TABLET PO SCH ×2 (05:20→17:52)
[2022-11-01] MEDS: PRENATAL VITAMINS W/ FOLIC ACID TABLET (FP) PO SCH (10:03)
[2022-11-01] MEDS: CARVEDILOL 12.5 MG TABLET (FP) PO SCH ×2 (10:03→22:10)
[2022-11-01] MEDS: HYDROCHLOROTHIAZIDE 25 MG TABLET (FP) PO SCH (10:03)
[2022-11-01] MEDS: APIXABAN 5 MG TABLET PO SCH ×2 (10:03→22:09)
[2022-11-01] MEDS: AMIODARONE HCL 200 MG TABLET PO SCH (10:03)
[2022-11-01] MEDS: PANTOPRAZOLE 20 MG TABLET PO SCH (10:03)
[2022-11-01] MEDS: TRIAMCINOLONE ACET 0.025% CREAM 15 GM TUBE TP SCH (10:04)
[2022-11-01] MEDS: KETOCONAZOLE 2% CREAM - 60GM TUBE TP SCH (10:04)
[2022-11-01] MEDS: PATIENT'S OWN MEDICATION (NON-FORMULARY) (Linaclotide [Linzess] 145 MCG Capsule) PO SCH (10:05)
[2022-11-01] MEDS: SACUBITRIL/VALSARTAN 49 MG-51 MG TABLET PO SCH ×2 (10:05→22:11)
[2022-11-01] MEDS: ATORVASTATIN CA 40 MG TABLET (FP) PO SCH (22:09)
[2022-11-01] MEDS: THIAMINE HCL 100 MG TABLET (FP) PO SCH (22:09)
[2022-11-01] MEDS: MELATONIN 5 MG TABLETS PO SCH (22:11)
[2022-11-02] MEDS ORDERED: diazePAM 5 MG TABLET PO ONE (06:00)
[2022-11-02] MEDS: PRENATAL VITAMINS W/ FOLIC ACID TABLET (FP) PO SCH (09:53)
[2022-11-02] MEDS: CARVEDILOL 12.5 MG TABLET (FP) PO SCH (09:53)
[2022-11-02] MEDS: HYDROCHLOROTHIAZIDE 25 MG TABLET (FP) PO SCH (09:53)
[2022-11-02] MEDS: PANTOPRAZOLE 20 MG TABLET PO SCH (09:53)
[2022-11-02] MEDS: AMIODARONE HCL 200 MG TABLET PO SCH (09:53)
[2022-11-02] MEDS: APIXABAN 5 MG TABLET PO SCH (09:53)
[2022-11-02] MEDS: PATIENT'S OWN MEDICATION (NON-FORMULARY) (Linaclotide [Linzess] 145 MCG Capsule) PO SCH (09:54)
[2022-11-02] MEDS: KETOCONAZOLE 2% CREAM - 60GM TUBE TP SCH (09:54)
[2022-11-02] MEDS: TRIAMCINOLONE ACET 0.025% CREAM 15 GM TUBE TP SCH (09:54)
[2022-11-02] MEDS: SACUBITRIL/VALSARTAN 49 MG-51 MG TABLET PO SCH (09:54)
[2022-11-02 13:33] VITALS: BP 111/71; PULSE 70; RESP 18; TEMP 97.3
== END 2022-11-02 14:22 | disposition other institution (70) | DRG 897 ==
LOC: YASAS 16:28 → Y6N 20:10
PROVIDERS: ADMIT Allergy & Immunology; ATTEND Surgery
PROC: HZ2ZZZZ Detoxification Services for Substance Abuse Treatment (ICD-10-PCS; principal; 2022-10-29)
DX: F10.230 Alcohol dependence with withdrawal, uncomplicated (principal); F14.20 Cocaine dependence, uncomplicated; F17.210 Nicotine dependence, cigarettes, uncomplicated; I11.0 Hypertensive heart disease with heart failure; I50.9 Heart failure, unspecified; I48.91 Unspecified atrial fibrillation; E11.9 Type 2 diabetes mellitus without complications; Z79.84 Long term (current) use of oral hypoglycemic drugs; K21.9 Gastro-esophageal reflux disease without esophagitis; E66.9 Obesity, unspecified; Z68.38 Body mass index [BMI] 38.0-38.9, adult; Z79.01 Long term (current) use of anticoagulants; Z86.11 Personal history of tuberculosis
CPT/HCPCS: 36415; 71046-TC-FY; 80053; 82962; 85027; 86780; C9803-CS; U0003; U0005

== ENCOUNTER 2022-11-02 14:43 | Inpatient (IN) | payer OTHER ==
[2022-11-02] MEDS ORDERED: LOPERAMIDE HCL 2 MG CAPSULE PO PRN (15:15)
[2022-11-02] MEDS ORDERED: BENZONATATE 200 MG CAPSULE PO PRN (15:15)
[2022-11-02] MEDS ORDERED: MAG HYDROX/AL HYDROX/SIMETH 30 ML UNIT-DOSE CUP PO PRN (15:15)
[2022-11-02] MEDS ORDERED: ACETAMINOPHEN 325 MG TABLET (FP) PO PRN (15:15)
[2022-11-02] MEDS ORDERED: NICOTINE 10 MG CARTRIDGE (INHALER) IH PRN (15:15)
[2022-11-02] MEDS ORDERED: NALOXONE HCL 0.4 MG/ML VIAL IVPUSH PRN (15:15)
[2022-11-02] MEDS ORDERED: hydrOXYzine PAMOATE 25 MG CAPSULE (FP) PO PRN (15:15)
[2022-11-02] MEDS ORDERED: guaiFENesin 600 MG TABLET.ER (FP) PO PRN (15:15)
[2022-11-02] MEDS ORDERED: NALOXONE HCL (KLOXXADO) 8 MG SPRAY NS PRN (15:15)
[2022-11-02] MEDS ORDERED: METHOCARBAMOL 500 MG TABLET PO PRN (15:15)
[2022-11-02] MEDS ORDERED: BENZOCAINE/MENTHOL (CHLORASEPTIC ) LOZENGE MM PRN (15:15)
[2022-11-02] MEDS ORDERED: MAGNESIUM HYDROX 2400MG/30ML ORAL SUSPENSION 30 ML CUP PO PRN (15:15)
[2022-11-02] MEDS ORDERED: POLYETHYLENE GLYCOL (HEALTHYLAX) 3350 17 GM PACKET PO PRN (15:15)
[2022-11-02] MEDS: CARVEDILOL 12.5 MG TABLET (FP) PO SCH (21:36)
[2022-11-02] MEDS: SACUBITRIL/VALSARTAN 49 MG-51 MG TABLET PO SCH (21:36)
[2022-11-02] MEDS: APIXABAN 5 MG TABLET PO SCH (21:38)
[2022-11-02] MEDS: ATORVASTATIN CA 40 MG TABLET (FP) PO SCH (21:38)
[2022-11-02] MEDS: MELATONIN 5 MG TABLETS PO SCH (21:38)
[2022-11-02] MEDS: THIAMINE HCL 100 MG TABLET (FP) PO SCH (21:38)
[2022-11-03] MEDS: PRENATAL VITAMINS W/ FOLIC ACID TABLET (FP) PO SCH (09:24)
[2022-11-03] MEDS: APIXABAN 5 MG TABLET PO SCH ×2 (09:24→21:17)
[2022-11-03] MEDS: PANTOPRAZOLE 20 MG TABLET PO SCH (09:24)
[2022-11-03] MEDS: FERROUS SO4 325 MG TABLET (FP) PO SCH (09:24)
[2022-11-03] MEDS: CARVEDILOL 12.5 MG TABLET (FP) PO SCH ×2 (09:24→21:16)
[2022-11-03] MEDS: AMIODARONE HCL 200 MG TABLET PO SCH (09:25)
[2022-11-03] MEDS: SACUBITRIL/VALSARTAN 49 MG-51 MG TABLET PO SCH ×2 (09:25→21:16)
[2022-11-03] MEDS: KETOCONAZOLE 2% CREAM - 60GM TUBE TP SCH (09:25)
[2022-11-03] MEDS: PATIENT'S OWN MEDICATION (NON-FORMULARY) (Linaclotide [Linzess] 145 MCG Capsule) PO SCH (13:30)
[2022-11-03] MEDS: THIAMINE HCL 100 MG TABLET (FP) PO SCH (21:16)
[2022-11-03] MEDS: ATORVASTATIN CA 40 MG TABLET (FP) PO SCH (21:16)
[2022-11-03] MEDS: MELATONIN 5 MG TABLETS PO SCH (21:17)
[2022-11-04] MEDS: AMIODARONE HCL 200 MG TABLET PO SCH (09:33)
[2022-11-04] MEDS: CARVEDILOL 12.5 MG TABLET (FP) PO SCH ×2 (09:34→21:29)
[2022-11-04] MEDS: PATIENT'S OWN MEDICATION (NON-FORMULARY) (Linaclotide [Linzess] 145 MCG Capsule) PO SCH (09:34)
[2022-11-04] MEDS: APIXABAN 5 MG TABLET PO SCH ×2 (09:34→21:29)
[2022-11-04] MEDS: SACUBITRIL/VALSARTAN 49 MG-51 MG TABLET PO SCH ×2 (09:35→21:29)
[2022-11-04] MEDS: FERROUS SO4 325 MG TABLET (FP) PO SCH (09:35)
[2022-11-04] MEDS: PANTOPRAZOLE 20 MG TABLET PO SCH (09:36)
[2022-11-04] MEDS: PRENATAL VITAMINS W/ FOLIC ACID TABLET (FP) PO SCH (09:36)
[2022-11-04] MEDS: KETOCONAZOLE 2% CREAM - 60GM TUBE TP SCH (09:37)
[2022-11-04] MEDS: ATORVASTATIN CA 40 MG TABLET (FP) PO SCH (21:28)
[2022-11-04] MEDS: THIAMINE HCL 100 MG TABLET (FP) PO SCH (21:29)
[2022-11-04] MEDS: MELATONIN 5 MG TABLETS PO SCH (21:29)
[2022-11-05] MEDS: AMIODARONE HCL 200 MG TABLET PO SCH (09:36)
[2022-11-05] MEDS: FERROUS SO4 325 MG TABLET (FP) PO SCH (09:37)
[2022-11-05] MEDS: APIXABAN 5 MG TABLET PO SCH ×2 (09:37→21:32)
[2022-11-05] MEDS: CARVEDILOL 12.5 MG TABLET (FP) PO SCH ×2 (09:37→21:32)
[2022-11-05] MEDS: SACUBITRIL/VALSARTAN 49 MG-51 MG TABLET PO SCH ×2 (09:37→21:32)
[2022-11-05] MEDS: KETOCONAZOLE 2% CREAM - 60GM TUBE TP SCH (09:38)
[2022-11-05] MEDS: PATIENT'S OWN MEDICATION (NON-FORMULARY) (Linaclotide [Linzess] 145 MCG Capsule) PO SCH (09:38)
[2022-11-05] MEDS: PANTOPRAZOLE 20 MG TABLET PO SCH (09:38)
[2022-11-05] MEDS: PRENATAL VITAMINS W/ FOLIC ACID TABLET (FP) PO SCH (09:38)
[2022-11-05] MEDS: THIAMINE HCL 100 MG TABLET (FP) PO SCH (21:32)
[2022-11-05] MEDS: MELATONIN 5 MG TABLETS PO SCH (21:32)
[2022-11-05] MEDS: ATORVASTATIN CA 40 MG TABLET (FP) PO SCH (21:32)
[2022-11-06] MEDS: APIXABAN 5 MG TABLET PO SCH ×2 (09:28→21:25)
[2022-11-06] MEDS: FERROUS SO4 325 MG TABLET (FP) PO SCH (09:28)
[2022-11-06] MEDS: PRENATAL VITAMINS W/ FOLIC ACID TABLET (FP) PO SCH (09:28)
[2022-11-06] MEDS: AMIODARONE HCL 200 MG TABLET PO SCH (09:29)
[2022-11-06] MEDS: SACUBITRIL/VALSARTAN 49 MG-51 MG TABLET PO SCH ×2 (09:29→21:26)
[2022-11-06] MEDS: PANTOPRAZOLE 20 MG TABLET PO SCH (09:29)
[2022-11-06] MEDS: CARVEDILOL 12.5 MG TABLET (FP) PO SCH ×2 (09:30→21:25)
[2022-11-06] MEDS: PATIENT'S OWN MEDICATION (NON-FORMULARY) (Linaclotide [Linzess] 145 MCG Capsule) PO SCH (09:30)
[2022-11-06] MEDS: KETOCONAZOLE 2% CREAM - 60GM TUBE TP SCH (09:31)
[2022-11-06] MEDS ORDERED: AMMONIUM LACTATE 12% LOTION 225 GM BOTTLE TP PRN (13:03)
[2022-11-06] MEDS: ATORVASTATIN CA 40 MG TABLET (FP) PO SCH (21:25)
[2022-11-06] MEDS: MELATONIN 5 MG TABLETS PO SCH (21:26)
[2022-11-06] MEDS: THIAMINE HCL 100 MG TABLET (FP) PO SCH (21:26)
[2022-11-06] MEDS: COLLOIDAL OATMEAL 1 BAR EACH TP PRN (21:28)
[2022-11-07] MEDS: AMIODARONE HCL 200 MG TABLET PO SCH (10:13)
[2022-11-07] MEDS: SACUBITRIL/VALSARTAN 49 MG-51 MG TABLET PO SCH ×2 (10:14→21:35)
[2022-11-07] MEDS: FERROUS SO4 325 MG TABLET (FP) PO SCH (10:14)
[2022-11-07] MEDS: APIXABAN 5 MG TABLET PO SCH ×2 (10:14→21:35)
[2022-11-07] MEDS: PANTOPRAZOLE 20 MG TABLET PO SCH (10:14)
[2022-11-07] MEDS: CARVEDILOL 12.5 MG TABLET (FP) PO SCH ×2 (10:14→21:35)
[2022-11-07] MEDS: PRENATAL VITAMINS W/ FOLIC ACID TABLET (FP) PO SCH (10:14)
[2022-11-07] MEDS: PATIENT'S OWN MEDICATION (NON-FORMULARY) (Linaclotide [Linzess] 145 MCG Capsule) PO SCH (10:15)
[2022-11-07] MEDS: KETOCONAZOLE 2% CREAM - 60GM TUBE TP SCH (10:15)
[2022-11-07] MEDS: TOLNAFTATE 1% CREAM 15 GM TUBE TP SCH ×2 (10:16→21:36)
[2022-11-07] MEDS: MELATONIN 5 MG TABLETS PO SCH (21:35)
[2022-11-07] MEDS: THIAMINE HCL 100 MG TABLET (FP) PO SCH (21:35)
[2022-11-07] MEDS: ATORVASTATIN CA 40 MG TABLET (FP) PO SCH (21:35)
[2022-11-08] MEDS ORDERED: TRIAMCINOLONE ACET 0.5% CREAM 15 GM TUBE TP PRN (08:57)
[2022-11-08] MEDS: PRENATAL VITAMINS W/ FOLIC ACID TABLET (FP) PO SCH (09:29)
[2022-11-08] MEDS: PANTOPRAZOLE 20 MG TABLET PO SCH (09:29)
[2022-11-08] MEDS: CARVEDILOL 12.5 MG TABLET (FP) PO SCH ×2 (09:29→21:47)
[2022-11-08] MEDS: APIXABAN 5 MG TABLET PO SCH ×2 (09:29→21:46)
[2022-11-08] MEDS: FERROUS SO4 325 MG TABLET (FP) PO SCH (09:29)
[2022-11-08] MEDS: AMIODARONE HCL 200 MG TABLET PO SCH (09:29)
[2022-11-08] MEDS: PATIENT'S OWN MEDICATION (NON-FORMULARY) (Linaclotide [Linzess] 145 MCG Capsule) PO SCH (09:32)
[2022-11-08] MEDS: SACUBITRIL/VALSARTAN 49 MG-51 MG TABLET PO SCH ×2 (09:32→21:49)
[2022-11-08] MEDS: TOLNAFTATE 1% CREAM 15 GM TUBE TP SCH ×2 (09:34→21:47)
[2022-11-08] MEDS: KETOCONAZOLE 2% CREAM - 60GM TUBE TP SCH (09:34)
[2022-11-08] MEDS: THIAMINE HCL 100 MG TABLET (FP) PO SCH (21:46)
[2022-11-08] MEDS: ATORVASTATIN CA 40 MG TABLET (FP) PO SCH (21:46)
[2022-11-08] MEDS: MELATONIN 5 MG TABLETS PO SCH (21:49)
[2022-11-09] MEDS: APIXABAN 5 MG TABLET PO SCH ×2 (09:22→21:29)
[2022-11-09] MEDS: SACUBITRIL/VALSARTAN 49 MG-51 MG TABLET PO SCH ×2 (09:22→21:30)
[2022-11-09] MEDS: AMIODARONE HCL 200 MG TABLET PO SCH (09:22)
[2022-11-09] MEDS: CARVEDILOL 12.5 MG TABLET (FP) PO SCH ×2 (09:22→21:29)
[2022-11-09] MEDS: PATIENT'S OWN MEDICATION (NON-FORMULARY) (Linaclotide [Linzess] 145 MCG Capsule) PO SCH (09:23)
[2022-11-09] MEDS: FERROUS SO4 325 MG TABLET (FP) PO SCH (09:23)
[2022-11-09] MEDS: TOLNAFTATE 1% CREAM 15 GM TUBE TP SCH ×2 (09:24→21:30)
[2022-11-09] MEDS: PANTOPRAZOLE 20 MG TABLET PO SCH (09:24)
[2022-11-09] MEDS: PRENATAL VITAMINS W/ FOLIC ACID TABLET (FP) PO SCH (09:24)
[2022-11-09] MEDS: KETOCONAZOLE 2% CREAM - 60GM TUBE TP SCH (09:25)
[2022-11-09] MEDS: THIAMINE HCL 100 MG TABLET (FP) PO SCH (21:29)
[2022-11-09] MEDS: ATORVASTATIN CA 40 MG TABLET (FP) PO SCH (21:29)
[2022-11-09] MEDS: MELATONIN 5 MG TABLETS PO SCH (21:30)
[2022-11-10] MEDS: APIXABAN 5 MG TABLET PO SCH ×2 (09:24→21:27)
[2022-11-10] MEDS: AMIODARONE HCL 200 MG TABLET PO SCH (09:24)
[2022-11-10] MEDS: CARVEDILOL 12.5 MG TABLET (FP) PO SCH ×2 (09:24→21:27)
[2022-11-10] MEDS: FERROUS SO4 325 MG TABLET (FP) PO SCH (09:25)
[2022-11-10] MEDS: PANTOPRAZOLE 20 MG TABLET PO SCH (09:25)
[2022-11-10] MEDS: TOLNAFTATE 1% CREAM 15 GM TUBE TP SCH ×2 (09:25→21:28)
[2022-11-10] MEDS: PRENATAL VITAMINS W/ FOLIC ACID TABLET (FP) PO SCH (09:25)
[2022-11-10] MEDS: PATIENT'S OWN MEDICATION (NON-FORMULARY) (Linaclotide [Linzess] 145 MCG Capsule) PO SCH (09:25)
[2022-11-10] MEDS: SACUBITRIL/VALSARTAN 49 MG-51 MG TABLET PO SCH ×2 (09:26→21:27)
[2022-11-10] MEDS: KETOCONAZOLE 2% CREAM - 60GM TUBE TP SCH (09:27)
[2022-11-10] MEDS: THIAMINE HCL 100 MG TABLET (FP) PO SCH (21:26)
[2022-11-10] MEDS: MELATONIN 5 MG TABLETS PO SCH (21:26)
[2022-11-10] MEDS: ATORVASTATIN CA 40 MG TABLET (FP) PO SCH (21:26)
[2022-11-11] MEDS: PANTOPRAZOLE 20 MG TABLET PO SCH (10:17)
[2022-11-11] MEDS: APIXABAN 5 MG TABLET PO SCH ×2 (10:17→21:28)
[2022-11-11] MEDS: AMIODARONE HCL 200 MG TABLET PO SCH (10:18)
[2022-11-11] MEDS: CARVEDILOL 12.5 MG TABLET (FP) PO SCH ×2 (10:18→21:28)
[2022-11-11] MEDS: FERROUS SO4 325 MG TABLET (FP) PO SCH (10:18)
[2022-11-11] MEDS: PATIENT'S OWN MEDICATION (NON-FORMULARY) (Linaclotide [Linzess] 145 MCG Capsule) PO SCH (10:19)
[2022-11-11] MEDS: PRENATAL VITAMINS W/ FOLIC ACID TABLET (FP) PO SCH (10:19)
[2022-11-11] MEDS: SACUBITRIL/VALSARTAN 49 MG-51 MG TABLET PO SCH ×2 (10:19→21:28)
[2022-11-11] MEDS: KETOCONAZOLE 2% CREAM - 60GM TUBE TP SCH (10:19)
[2022-11-11] MEDS: TOLNAFTATE 1% CREAM 15 GM TUBE TP SCH ×2 (10:20→21:29)
[2022-11-11] MEDS: THIAMINE HCL 100 MG TABLET (FP) PO SCH (21:28)
[2022-11-11] MEDS: ATORVASTATIN CA 40 MG TABLET (FP) PO SCH (21:28)
[2022-11-11] MEDS: MELATONIN 5 MG TABLETS PO SCH (21:29)
[2022-11-12] MEDS: PRENATAL VITAMINS W/ FOLIC ACID TABLET (FP) PO SCH (09:39)
[2022-11-12] MEDS: FERROUS SO4 325 MG TABLET (FP) PO SCH (09:39)
[2022-11-12] MEDS: CARVEDILOL 12.5 MG TABLET (FP) PO SCH ×2 (09:39→21:33)
[2022-11-12] MEDS: AMIODARONE HCL 200 MG TABLET PO SCH (09:39)
[2022-11-12] MEDS: APIXABAN 5 MG TABLET PO SCH ×2 (09:39→21:33)
[2022-11-12] MEDS: PANTOPRAZOLE 20 MG TABLET PO SCH (09:40)
[2022-11-12] MEDS: SACUBITRIL/VALSARTAN 49 MG-51 MG TABLET PO SCH ×2 (09:40→21:33)
[2022-11-12] MEDS: PATIENT'S OWN MEDICATION (NON-FORMULARY) (Linaclotide [Linzess] 145 MCG Capsule) PO SCH (09:40)
[2022-11-12] MEDS: COLLOIDAL OATMEAL 1 BAR EACH TP PRN (09:41)
[2022-11-12] MEDS: TOLNAFTATE 1% CREAM 15 GM TUBE TP SCH (09:42)
[2022-11-12] MEDS: KETOCONAZOLE 2% CREAM - 60GM TUBE TP SCH (09:42)
[2022-11-12] MEDS ORDERED: KETOCONAZOLE 2% CREAM - 60GM TUBE TP PRN (11:39)
[2022-11-12] MEDS: ATORVASTATIN CA 40 MG TABLET (FP) PO SCH (21:33)
[2022-11-12] MEDS: THIAMINE HCL 100 MG TABLET (FP) PO SCH (21:33)
[2022-11-12] MEDS: MELATONIN 5 MG TABLETS PO SCH (21:57)
[2022-11-13] MEDS: CARVEDILOL 12.5 MG TABLET (FP) PO SCH ×2 (09:58→21:54)
[2022-11-13] MEDS: AMIODARONE HCL 200 MG TABLET PO SCH (09:58)
[2022-11-13] MEDS: FERROUS SO4 325 MG TABLET (FP) PO SCH (09:58)
[2022-11-13] MEDS: APIXABAN 5 MG TABLET PO SCH ×2 (09:58→21:53)
[2022-11-13] MEDS: PANTOPRAZOLE 20 MG TABLET PO SCH (09:58)
[2022-11-13] MEDS: PRENATAL VITAMINS W/ FOLIC ACID TABLET (FP) PO SCH (09:59)
[2022-11-13] MEDS: SACUBITRIL/VALSARTAN 49 MG-51 MG TABLET PO SCH ×2 (09:59→21:54)
[2022-11-13] MEDS: PATIENT'S OWN MEDICATION (NON-FORMULARY) (Linaclotide [Linzess] 145 MCG) PO PRN (09:59)
[2022-11-13] MEDS: ATORVASTATIN CA 40 MG TABLET (FP) PO SCH (21:53)
[2022-11-13] MEDS: MELATONIN 5 MG TABLETS PO SCH (21:53)
[2022-11-13] MEDS: THIAMINE HCL 100 MG TABLET (FP) PO SCH (21:54)
[2022-11-14] MEDS ORDERED: MELATONIN 5 MG TABLETS PO PRN (08:15)
[2022-11-14] MEDS: AMIODARONE HCL 200 MG TABLET PO SCH (09:28)
[2022-11-14] MEDS: APIXABAN 5 MG TABLET PO SCH ×2 (09:28→21:48)
[2022-11-14] MEDS: CARVEDILOL 12.5 MG TABLET (FP) PO SCH ×2 (09:28→21:48)
[2022-11-14] MEDS: PANTOPRAZOLE 20 MG TABLET PO SCH (09:29)
[2022-11-14] MEDS: SACUBITRIL/VALSARTAN 49 MG-51 MG TABLET PO SCH ×2 (09:29→21:48)
[2022-11-14] MEDS: PRENATAL VITAMINS W/ FOLIC ACID TABLET (FP) PO SCH (09:29)
[2022-11-14] MEDS: PATIENT'S OWN MEDICATION (NON-FORMULARY) (Linaclotide [Linzess] 145 MCG) PO PRN (09:29)
[2022-11-14] MEDS: FERROUS SO4 325 MG TABLET (FP) PO SCH (09:29)
[2022-11-14] MEDS: TOLNAFTATE 1% CREAM 15 GM TUBE TP PRN (09:30)
[2022-11-14] MEDS: ATORVASTATIN CA 40 MG TABLET (FP) PO SCH (21:48)
[2022-11-14] MEDS: THIAMINE HCL 100 MG TABLET (FP) PO SCH (21:49)
[2022-11-15] MEDS: SACUBITRIL/VALSARTAN 49 MG-51 MG TABLET PO SCH ×2 (09:24→21:37)
[2022-11-15] MEDS: PANTOPRAZOLE 20 MG TABLET PO SCH (09:24)
[2022-11-15] MEDS: APIXABAN 5 MG TABLET PO SCH ×2 (09:24→21:37)
[2022-11-15] MEDS: AMIODARONE HCL 200 MG TABLET PO SCH (09:24)
[2022-11-15] MEDS: CARVEDILOL 12.5 MG TABLET (FP) PO SCH ×2 (09:24→21:37)
[2022-11-15] MEDS: PRENATAL VITAMINS W/ FOLIC ACID TABLET (FP) PO SCH (09:24)
[2022-11-15] MEDS: FERROUS SO4 325 MG TABLET (FP) PO SCH (09:24)
[2022-11-15] MEDS: PATIENT'S OWN MEDICATION (NON-FORMULARY) (Linaclotide [Linzess] 145 MCG) PO PRN (09:25)
[2022-11-15] MEDS: ATORVASTATIN CA 40 MG TABLET (FP) PO SCH (21:37)
[2022-11-15] MEDS: THIAMINE HCL 100 MG TABLET (FP) PO SCH (21:37)
[2022-11-16] MEDS: FERROUS SO4 325 MG TABLET (FP) PO SCH (09:18)
[2022-11-16] MEDS: AMIODARONE HCL 200 MG TABLET PO SCH (09:19)
[2022-11-16] MEDS: PANTOPRAZOLE 20 MG TABLET PO SCH (09:19)
[2022-11-16] MEDS: APIXABAN 5 MG TABLET PO SCH ×2 (09:19→22:00)
[2022-11-16] MEDS: SACUBITRIL/VALSARTAN 49 MG-51 MG TABLET PO SCH ×2 (09:19→21:58)
[2022-11-16] MEDS: PATIENT'S OWN MEDICATION (NON-FORMULARY) (Linaclotide [Linzess] 145 MCG) PO PRN (09:20)
[2022-11-16] MEDS: PRENATAL VITAMINS W/ FOLIC ACID TABLET (FP) PO SCH (09:20)
[2022-11-16] MEDS: CARVEDILOL 12.5 MG TABLET (FP) PO SCH ×2 (09:20→21:58)
[2022-11-16] MEDS: TOLNAFTATE 1% CREAM 15 GM TUBE TP PRN (09:22)
[2022-11-16] MEDS: THIAMINE HCL 100 MG TABLET (FP) PO SCH (21:59)
[2022-11-16] MEDS: ATORVASTATIN CA 40 MG TABLET (FP) PO SCH (22:00)
[2022-11-17 01:07] VITALS: RESP 20
[2022-11-17 08:21] VITALS: BP 136/86; PULSE 63; TEMP 97.5
== END 2022-11-17 10:30 | disposition home or self-care (01) | DRG 895 ==
LOC: YASAS 14:43 → Y3E 14:48 → Y3W 11-16 23:57
PROVIDERS: ADMIT Allergy & Immunology; ATTEND Psychiatry & Neurology Pain Medicine
PROC: HZ42ZZZ Group Counseling for Substance Abuse Treatment, Cognitive-Behavioral (ICD-10-PCS; principal; 2022-11-02)
DX: F10.20 Alcohol dependence, uncomplicated (principal); F14.20 Cocaine dependence, uncomplicated; F17.210 Nicotine dependence, cigarettes, uncomplicated; E78.00 Pure hypercholesterolemia, unspecified; I10 Essential (primary) hypertension; I50.9 Heart failure, unspecified; I48.91 Unspecified atrial fibrillation; L30.9 Dermatitis, unspecified; L85.3 Xerosis cutis; E11.9 Type 2 diabetes mellitus without complications; Z79.84 Long term (current) use of oral hypoglycemic drugs; E66.9 Obesity, unspecified; Z68.39 Body mass index [BMI] 39.0-39.9, adult; Z85.46 Personal history of malignant neoplasm of prostate; Z88.8 Allergy status to other drugs, medicaments and biological substances; Z91.013 Allergy to seafood; Z99.89 Dependence on other enabling machines and devices
CPT/HCPCS: 36415; 82962; 86803

== ENCOUNTER 2023-07-22 09:34 | Inpatient (IN) | payer OTHER ==
[2023-07-22 10:03] VITALS: BMI 37.4
[2023-07-22] MEDS ORDERED: guaiFENesin 600 MG TABLET.ER (FP) PO PRN (12:02)
[2023-07-22] MEDS ORDERED: NICOTINE POLACRILEX 2 MG GUM BUC PRN (12:02)
[2023-07-22] MEDS ORDERED: MAGNESIUM HYDROX 2400MG/30ML ORAL SUSPENSION 30 ML CUP PO PRN (12:02)
[2023-07-22] MEDS ORDERED: POLYETHYLENE GLYCOL (HEALTHYLAX) 3350 17 GM PACKET PO PRN (12:02)
[2023-07-22] MEDS ORDERED: BENZOCAINE/MENTHOL (CHLORASEPTIC ) LOZENGE MM PRN (12:02)
[2023-07-22] MEDS ORDERED: NALOXONE HCL (KLOXXADO) 8 MG SPRAY NS PRN (12:02)
[2023-07-22] MEDS ORDERED: IBUPROFEN 400 MG TABLET (FP) PO PRN (12:02)
[2023-07-22] MEDS ORDERED: NALOXONE HCL 0.4 MG/ML VIAL IM PRN (12:02)
[2023-07-22] MEDS ORDERED: ACETAMINOPHEN 325 MG TABLET (FP) PO PRN (12:02)
[2023-07-22] MEDS ORDERED: ONDANSETRON *ODT* 4 MG TABLET SL PRN (12:02)
[2023-07-22] MEDS ORDERED: MAG HYDROX/AL HYDROX/SIMETH 30 ML UNIT-DOSE CUP PO PRN (12:02)
[2023-07-22] MEDS ORDERED: hydrOXYzine PAMOATE 25 MG CAPSULE (FP) PO PRN (12:02)
[2023-07-22] MEDS ORDERED: BISMUTH SUBSALICYLATE 262 MG/15 ML BTL PO PRN (12:02)
[2023-07-22] MEDS ORDERED: LOPERAMIDE HCL 2 MG CAPSULE PO PRN (12:02)
[2023-07-22] MEDS ORDERED: BENZONATATE 200 MG CAPSULE PO PRN (12:02)
[2023-07-22] MEDS ORDERED: IBUPROFEN 600 MG TABLET (FP) PO PRN (12:02)
[2023-07-22] MEDS: diazePAM 5 MG TABLET PO SCH ×2 (17:12→22:08)
[2023-07-22] MEDS: DOCUSATE SODIUM 100 MG CAPSULE (FP) PO SCH (22:07)
[2023-07-22] MEDS: SACUBITRIL/VALSARTAN 49 MG-51 MG TABLET PO SCH (22:07)
[2023-07-22] MEDS: SENNOSIDES 8.6MG TABLET (FP) PO SCH (22:07)
[2023-07-22] MEDS: CARVEDILOL 12.5 MG TABLET (FP) PO SCH (22:08)
[2023-07-22] MEDS: THIAMINE HCL 100 MG TABLET (FP) PO SCH (22:08)
[2023-07-22] MEDS: APIXABAN 5 MG TABLET PO SCH (22:08)
[2023-07-22] MEDS: MELATONIN 5 MG TABLETS PO SCH ×2 (22:10→23:13)
[2023-07-23] MEDS: DOCUSATE SODIUM 100 MG CAPSULE (FP) PO SCH ×3 (05:29→21:57)
[2023-07-23] MEDS: diazePAM 5 MG TABLET PO SCH ×3 (05:30→21:59)
[2023-07-23] MEDS: EMPAGLIFLOZIN (JARDIANCE) 10 MG TABLET PO SCH (06:05)
[2023-07-23] MEDS ORDERED: PATIENT'S OWN MEDICATION (NON-FORMULARY) (Dexlansoprazole [Dexilant] 60 MG Cap.Dr.Bp) PO SCH ×3 (07:00→11:00)
[2023-07-23] MEDS ORDERED: PATIENT'S OWN MEDICATION (NON-FORMULARY) (Linaclotide [Linzess] 145 MCG Capsule) PO SCH (10:00)
[2023-07-23] MEDS: APIXABAN 5 MG TABLET PO SCH ×2 (10:31→21:57)
[2023-07-23] MEDS: SACUBITRIL/VALSARTAN 49 MG-51 MG TABLET PO SCH ×2 (10:31→21:59)
[2023-07-23] MEDS: PRENATAL VITAMINS W/ FOLIC ACID TABLET (FP) PO SCH (10:31)
[2023-07-23] MEDS: CARVEDILOL 12.5 MG TABLET (FP) PO SCH ×2 (10:31→21:57)
[2023-07-23 10:39] LABS: POTASSIUM 4.1 mmol/L (3.5-5.1)
[2023-07-23 10:48] LABS: BILIRUBIN,TOTAL 0.2 mg/dL (0.2-1); TOT PROT 7.1 g/dl (6.4-8.2)
[2023-07-23 10:49] LABS: ALBUMIN 3.7 g/dl (3.4-5.0); BLOOD UREA NITROGEN 20.8 mg/dL (7-18); CALCIUM 8.9 mg/dL (8.5-10.1); HEMOGLOBIN 11.8 GM/dL (11.7-16.9); MCH 25.3 pg (25.7-33.7); MCHC 31.8 g/dl (32.0-35.9); MEAN CELL VOLUME 79.6 fl (80-96); MEAN PLT VOLUME 9.2 fl (7.5-11.1); PLATELET COUNT 199 10^3/uL (134-434); RBC 4.64 M/mm3 (4.00-5.60); RDW 15.6 % (11.9-15.9); WHITE BLOOD COUNT 3.6 K/mm3 (4.0-10.0)
[2023-07-23] MEDS: PATIENT'S OWN MEDICATION (NON-FORMULARY) (Dexlansoprazole [Dexilant] 60 MG Cap.Dr.Bp) PO SCH (11:24)
[2023-07-23] MEDS: THIAMINE HCL 100 MG TABLET (FP) PO SCH (21:57)
[2023-07-23] MEDS: SENNOSIDES 8.6MG TABLET (FP) PO SCH (21:57)
[2023-07-23] MEDS: MELATONIN 5 MG TABLETS PO SCH (21:59)
[2023-07-24] MEDS: DOCUSATE SODIUM 100 MG CAPSULE (FP) PO SCH (05:26)
[2023-07-24] MEDS: diazePAM 5 MG TABLET PO SCH ×2 (05:26→17:42)
[2023-07-24] MEDS: EMPAGLIFLOZIN (JARDIANCE) 10 MG TABLET PO SCH (06:49)
[2023-07-24] MEDS ORDERED: PATIENT'S OWN MEDICATION (NON-FORMULARY) (Linaclotide [Linzess] 145 MCG Capsule) PO SCH (10:00)
[2023-07-24] MEDS: PATIENT'S OWN MEDICATION (NON-FORMULARY) (Dexlansoprazole [Dexilant] 60 MG Cap.Dr.Bp) PO SCH (10:05)
[2023-07-24] MEDS: CARVEDILOL 12.5 MG TABLET (FP) PO SCH ×2 (10:06→21:36)
[2023-07-24] MEDS: PRENATAL VITAMINS W/ FOLIC ACID TABLET (FP) PO SCH (10:06)
[2023-07-24] MEDS: APIXABAN 5 MG TABLET PO SCH ×2 (10:06→21:36)
[2023-07-24] MEDS: SACUBITRIL/VALSARTAN 49 MG-51 MG TABLET PO SCH ×2 (10:07→21:36)
[2023-07-24] MEDS ORDERED: LINACLOTIDE 145 MCG CAPSULE PO SCH (13:06)
[2023-07-24] MEDS ORDERED: LINACLOTIDE 145 MCG CAPSULE PO ONE ×2 (14:12)
[2023-07-24 20:41] VITALS: PULSE 69
[2023-07-24] MEDS: THIAMINE HCL 100 MG TABLET (FP) PO SCH (21:36)
[2023-07-24] MEDS: MELATONIN 5 MG TABLETS PO SCH (21:37)
[2023-07-25] MEDS ORDERED: diazePAM 5 MG TABLET PO ONE (06:00)
[2023-07-25 06:51] VITALS: BP 128/85; RESP 16; TEMP 97.7
[2023-07-25] MEDS: EMPAGLIFLOZIN (JARDIANCE) 10 MG TABLET PO SCH (07:57)
== END 2023-07-25 08:56 | disposition home or self-care (01) | DRG 897 ==
LOC: YASAS 09:34 → Y3N 11:31 → Y6N 12:31
PROVIDERS: ADMIT Allergy & Immunology; ATTEND Surgery
PROC: HZ2ZZZZ Detoxification Services for Substance Abuse Treatment (ICD-10-PCS; principal; 2023-07-22)
DX: F10.230 Alcohol dependence with withdrawal, uncomplicated (principal); F14.20 Cocaine dependence, uncomplicated; F17.210 Nicotine dependence, cigarettes, uncomplicated; I25.10 Atherosclerotic heart disease of native coronary artery without angina pectoris; I11.0 Hypertensive heart disease with heart failure; I50.9 Heart failure, unspecified; I48.91 Unspecified atrial fibrillation; E78.5 Hyperlipidemia, unspecified; E53.8 Deficiency of other specified B group vitamins; D57.3 Sickle-cell trait; G47.30 Sleep apnea, unspecified; E11.9 Type 2 diabetes mellitus without complications; Z79.84 Long term (current) use of oral hypoglycemic drugs; Z85.46 Personal history of malignant neoplasm of prostate; Z86.718 Personal history of other venous thrombosis and embolism; Z79.01 Long term (current) use of anticoagulants; Z86.11 Personal history of tuberculosis; Z88.8 Allergy status to other drugs, medicaments and biological substances
CPT/HCPCS: 36415; 80053; 80307; 82962; 83036; 85027; 86780; 87635; 87811

== ENCOUNTER 2024-01-18 18:01 | Inpatient (IN) | payer OTHER ==
[2024-01-18 18:39] VITALS: BMI 37.7
[2024-01-18] MEDS ORDERED: diazePAM 5 MG TABLET PO PRN (18:54)
[2024-01-18] MEDS ORDERED: PATIENT'S OWN MEDICATION (NON-FORMULARY) (Dexlansoprazole [Dexilant] 60 MG Cap.Dr.Bp) PO PRN (18:57)
[2024-01-18] MEDS ORDERED: ACETAMINOPHEN 325 MG TABLET (FP) PO PRN (19:03)
[2024-01-18] MEDS ORDERED: BENZONATATE 200 MG CAPSULE PO PRN (19:03)
[2024-01-18] MEDS ORDERED: NALOXONE HCL 0.4 MG/ML VIAL IM PRN (19:03)
[2024-01-18] MEDS ORDERED: NALOXONE (NARCAN) HCL 4 MG/0.1 ML SPRAY NS PRN (19:03)
[2024-01-18] MEDS ORDERED: guaiFENesin 600 MG TABLET.ER (FP) PO PRN (19:03)
[2024-01-18] MEDS ORDERED: NICOTINE POLACRILEX 2 MG LOZENGE BC PRN (19:03)
[2024-01-18] MEDS ORDERED: MAGNESIUM HYDROX 2400MG/30ML ORAL SUSPENSION 30 ML CUP PO PRN (19:03)
[2024-01-18] MEDS ORDERED: ONDANSETRON *ODT* 4 MG TABLET SL PRN (19:03)
[2024-01-18] MEDS ORDERED: MAG HYDROX/AL HYDROX/SIMETH 30 ML UNIT-DOSE CUP PO PRN (19:03)
[2024-01-18] MEDS ORDERED: LOPERAMIDE HCL 2 MG CAPSULE PO PRN (19:03)
[2024-01-18] MEDS ORDERED: NICOTINE POLACRILEX 2 MG GUM BUC PRN (19:03)
[2024-01-18] MEDS ORDERED: BENZOCAINE/MENTHOL (CHLORASEPTIC ) LOZENGE MM PRN (19:03)
[2024-01-18] MEDS ORDERED: DICYCLOMINE HCL 10 MG CAPSULE PO PRN (19:03)
[2024-01-18] MEDS ORDERED: POLYETHYLENE GLYCOL (HEALTHYLAX) 3350 17 GM PACKET PO PRN (19:03)
[2024-01-18] MEDS: diazePAM 5 MG TABLET PO ONE (20:55)
[2024-01-18] MEDS: ATORVASTATIN CA 40 MG TABLET (FP) PO SCH (22:39)
[2024-01-18] MEDS: APIXABAN 5 MG TABLET PO SCH (22:39)
[2024-01-18] MEDS: THIAMINE 100 MG TABLET PO SCH (22:39)
[2024-01-18] MEDS: diazePAM 5 MG TABLET PO SCH (22:40)
[2024-01-18] MEDS: MELATONIN 5 MG TABLETS PO SCH (22:43)
[2024-01-18] MEDS ORDERED: diazePAM 5 MG TABLET PO SCH (23:00)
[2024-01-18] MEDS: SACUBITRIL/VALSARTAN 49 MG-51 MG TABLET PO SCH (23:21)
[2024-01-18] MEDS: CARVEDILOL 12.5 MG TABLET (FP) PO SCH (23:24)
[2024-01-19] MEDS: CHOLECALCIFEROL (VIT D3) 1,000 UNIT (25 MCG) TABLET PO SCH (10:48)
[2024-01-19] MEDS: EMPAGLIFLOZIN (JARDIANCE) 10 MG TABLET PO SCH (10:48)
[2024-01-19] MEDS: PRENATAL VITAMINS W/ FOLIC ACID TABLET (FP) PO SCH (10:48)
[2024-01-19] MEDS: PATIENT'S OWN MEDICATION (NON-FORMULARY) (Linaclotide 145 MCG Capsule) PO PRN (10:55)
[2024-01-19] MEDS: METHOCARBAMOL 500 MG TABLET PO PRN (17:41)
[2024-01-20] MEDS: diazePAM 5 MG TABLET PO SCH (05:56)
[2024-01-20 11:38] LABS: HEMATOCRIT 33.5 % (35.4-49); HEMOGLOBIN 10.7 GM/dL (11.7-16.9); MCH 25.1 pg (25.7-33.7); MCHC 32.1 g/dl (32.0-35.9); MEAN CELL VOLUME 78.2 fl (80-96); MEAN PLT VOLUME 9.1 fl (7.5-11.1); PLATELET COUNT 172 10^3/uL (134-434); POTASSIUM 4.1 mmol/L (3.5-5.1); RBC 4.28 M/mm3 (4.00-5.60); WHITE BLOOD COUNT 3.7 K/mm3 (4.0-10.0)
[2024-01-20 11:40] LABS: CALCIUM 8.4 mg/dL (8.5-10.1)
[2024-01-20 11:41] LABS: BLOOD UREA NITROGEN 22.7 mg/dL (7-18)
[2024-01-20 11:44] LABS: CREATININE 0.9 mg/dL (0.55-1.3)
[2024-01-20 11:45] LABS: BILIRUBIN,TOTAL 0.3 mg/dL (0.2-1)
[2024-01-20 11:46] LABS: TOT PROT 5.9 g/dl (6.4-8.2)
[2024-01-21] MEDS: diazePAM 5 MG TABLET PO SCH (05:46)
[2024-01-22] MEDS: diazePAM 5 MG TABLET PO ONE (06:14)
[2024-01-22 18:11] VITALS: RESP 18
[2024-01-23 08:51] VITALS: BP 121/77; PULSE 71; TEMP 97.7
== END 2024-01-23 10:39 | disposition home or self-care (01) | DRG 897 ==
LOC: YASAS 18:01 → Y6N 19:26
PROVIDERS: ADMIT Allergy & Immunology; ATTEND Surgery
PROC: HZ2ZZZZ Detoxification Services for Substance Abuse Treatment (ICD-10-PCS; principal; 2024-01-18)
DX: F10.230 Alcohol dependence with withdrawal, uncomplicated (principal); F14.10 Cocaine abuse, uncomplicated; F17.210 Nicotine dependence, cigarettes, uncomplicated; G47.33 Obstructive sleep apnea (adult) (pediatric); I25.10 Atherosclerotic heart disease of native coronary artery without angina pectoris; I11.0 Hypertensive heart disease with heart failure; I50.9 Heart failure, unspecified; I48.91 Unspecified atrial fibrillation; E78.5 Hyperlipidemia, unspecified; E11.9 Type 2 diabetes mellitus without complications; Z79.84 Long term (current) use of oral hypoglycemic drugs; K21.9 Gastro-esophageal reflux disease without esophagitis; K59.00 Constipation, unspecified; M17.0 Bilateral primary osteoarthritis of knee; Z86.718 Personal history of other venous thrombosis and embolism; Z79.01 Long term (current) use of anticoagulants; Z85.46 Personal history of malignant neoplasm of prostate; Z99.89 Dependence on other enabling machines and devices
CPT/HCPCS: 36415; 80053; 80305; 82962; 85027; 86780; 93005; 93010